=== PATIENT | male | born 1955 | race American Indian/Alaskan Native ===

== ENCOUNTER 2017-07-13 13:41 | Observation (INO) | payer OTHER ==
[~2017-07-13] VITALS: Ht 152.4 cm; Wt 63.6 kg
--- NOTE | ~2017-07-13 | OP ---
PATIENT NAME: ALFONSO EDWARD MEDICAL RECORD: [id number] :57 LOCATION:D.M2 D.2101 ADMISSION DATE:07/13/17 SURGEON: AURA LEPE MD DATE OF OPERATION: 07/14/2017 PROCEDURE: Left heart catheterization, selective coronary angiography plus 4-vessel arteriography, right femoral approach. CATHETERS: A 5-Armenian sheath, 5/4 left and right Jerome, 5/4 pig. The procedure was well tolerated. The patient was returned to navarro. Sheath removed. ExoSeal device was placed. FINDINGS: Left ventriculography not performed, heavily calcified aortic valve, unable to cross. CORONARY ANATOMY: 1. Left main: Left main is free of disease. 2. LAD: LAD is free of disease in the diagonal system. 3. Circumflex: Free of disease in the marginal system. 4. Right coronary artery has a high anterior takeoff, but is free of disease. IMPRESSION: No evidence of obstructive coronary artery disease, unable to across the aortic valve. FOUR-VESSEL ARTERIOGRAPHY: 1. Right common carotid smooth-walled vessel, free of disease. Right internal carotid smooth-walled vessel, free of disease. Right external carotid, smooth-walled vessel, free of disease. 2. Left common carotids were selectively engaged. This is a smooth-walled vessel, free of disease. Left internal carotid, smooth-walled vessel, free of disease. Left internal carotid smooth-walled vessel, free of disease. IMPRESSION: No evidence of carotid or coronary stenosis. We will check echocardiography study to see if he has significant gradient across the aortic valve, certainly it would explain his syncope and chest pain. TRANSINT:[id number] Voice Confirmation ID: [id number] DOCUMENT ID: [id number] AURA LEPE MD at 1129 CC: [id number] DICTATION DATE: 07/14/17 1220 MANAGER OF APPLICATION DEVELOPMENT: 07/14/17 1313 ADM IN [place] [id number] [place] [address]
--- NOTE | ~2017-07-13 | CN ---
PATIENT NAME:ALFONSO EDWARD MEDICAL RECORD: [id number] : 57 LOCATION:[facility] D.2101 ADMIT DATE: 07/13/17 ACCOUNT: [id number] CONSULTING PHYSICIAN: AURA LEPE MD REFERRING PHYSICIAN: ROSAURA WARNER MD DATE OF CONSULTATION: 07/14/2017 HISTORY OF PRESENT ILLNESS: A 62-year-old gentleman with no known history of coronary artery disease, recently seen in the office with TIA symptomatology, amaurosis with syncope as well as chest tightness and pressure consistent with angina. He was found to be hypertensive, was started on Edarbyclor. He was scheduled for a carotid Doppler secondary to symptomatology and carotid bruit as well as stress testing. He had rest symptomatology last night, ruled in for NSTEMI. He also had syncope, amaurosis again, we put forth for 4-vessel arteriography as well as diagnostic angiography. PAST MEDICAL HISTORY: History of new onset hypertension. MEDICATIONS: Edarbyclor 40/12.5. ALLERGIES: PENICILLIN. SOCIAL HISTORY: Works at [employer]. He is a nonsmoker. Social drinker. Easily takes care of his ADLs. REVIEW OF SYSTEMS: The patient reports easy bruising but reports no swollen glands. The patient reports no fever, no night sweats, no significant weight gain, no significant weight loss. No significant exercise tolerance. The patient reports no dry eyes, no irritation, no vision change. Patient reports no difficulty hearing and no ear pain. Patient reports no frequent nose bleeds or nose and sinus problems. Patient reports on arm pain on exertion. No shortness of breath while lying down. No history of heart murmur. Patient reports no cough, no wheezing or coughing up blood. Patient reports no abdominal pain, no vomiting. Normal appetite. No diarrhea and not vomiting blood. No nausea and no constipation. Patient reports no incontinence. No difficulty urinating. No hematuria. No increased frequency. Patient reports no muscle aches. No weakness, no arthralgias, no back pain. No swelling of the extremities. Patient reports no abnormal mole, no jaundice, no rashes. Reports no loss of consciousness. No weakness and no numbness. No seizures, dizziness, or headaches. The patient reports no depression, no sleep disturbance, feeling safe in a relationship and no alcohol abuse. Patient reports on fatigue. Reports no runny nose or sinus pressure. No itching, no hives, and no frequent sneezing. PHYSICAL EXAMINATION: GENERAL: Pleasant gentleman, appears stated age. VITAL SIGNS: Blood pressure 100/71, pulse 67 and regular. HEENT: Normocephalic, atraumatic. NECK: Left carotid bruit. HEART: Regular. LUNGS: Ryan are clear. ABDOMEN: Soft, nontender. EXTREMITIES: Pulses are 2+. No edema. NEUROLOGIC: Currently grossly intact. CONSULT REPORT [id number] ALFONSO EDWARD DIAGNOSTIC DATA: ECG shows minor nonspecific ST changes laterally. IMPRESSION: TIA, syncope, and NSTEMI. PLAN: For diagnostic coronary angiography, intervention based on above. TRANSINT:[id number] Voice Confirmation ID: [id number] DOCUMENT ID: [id number] AURA LEPE MD at 1129 CC: [id number] DICTATION DATE: 07/14/17918 INSPECTOR MECHANICAL: 07/14/17 1236 ADM IN [place] [id number] [place] [address]
--- NOTE | ~2017-07-13 | EC ---
PATIENT:ALFONSO EDWARD DATE OF SERVICE: 07/13/17 SEX: M MEDICAL RECORD: [id number] DATE OF : 57 LOCATION:D.M2 D.210 AGE OF PATIENT: 62 ADMISSION DATE: 07/13/17 REFERRING PHYSICIAN: INTERPRETING PHYSICIAN: AURA LEPE MD ECHOCARDIOGRAM REPORT ECHO CHARGES 4 ECHO COMPLETE CLINICAL DIAGNOSIS: ASSESS AORTIC VALVE/MURMUR ECHOCARDIOGRAPHIC MEASUREMENTS (adult normal given) AC root (d.<3.7cm) 2.6 cm LV Septum d (<1.2 cm> 1.4 cm Valve Excursion 0.5 cm LV Septum (systole) 1.6 cm Left Atria (s.<4.0cm> 4.3 cm LVPW d(<1.2cm) 1.6 cm RV (d.<2.3cm) 4.3 cm LVPW (sytole) 1.7 cm LV diastole(<5.6CM) 4.8 cm MV E-F(>70mm/sec) cm LV systole 3.7 cm LVOT Diameter 0.8 cm MV exc.(>10mm) cm Est.ejection fraction (50-75%) % Pericardial Effusion N DOPPLER: LVIT cm/sec A 69.0 cm/sec E 56.0 cm/sec LA cm/sec RVSP mmHg LVOT 130 cm/sec AOP1/2T m/s Asc. Ao 467 cm/sec RVOT cm/sec RA cm/sec PA cm/sec AV Gradient Peak 87.15mmHg AV Mean 57.78mmHg AV Area 0.1 cm MV Gradient Peak 2.26 mmHg MV Mean 1.13 mmHg MV Area cm COMMENTS: Superintendent: 2 RISA FREEMAN Wireless Sales Manager: 3 Dr. Lozada TAPE# PACS DATE OF SERVICE: 07/14/2017 Adequate 2-D echo, color flow imaging, spectral Doppler and M-Mode. LVH is present. LV internal dimensions are normal. Wall motion is normal. EF is greater than or equal to 55%. Aortic valve is calcified with restriction of leaflet motion. Difficult to tell if there is a bicuspid aortic valve; however, gradient is 87 mmHg, putting this in severe range. Left atrium is minimally dilated at 4.3 cm. Mitral shows no prolapse. Trace MR. Right-sided chamber is grossly normal. Trace TR. ECHOCARDIOGRAM REPORT [id number] ALFONSO EDWARD TRANSINT:[id number] Voice Confirmation ID: [id number] DOCUMENT ID: [id number] 07/18/2017 Edited to correct date of service, dmm. AURA LEPE MD at 1337 CC: [id number] DICTATION DATE: 07/15/17 1040 WINE MAKER: 07/15/17 1205 DIS IN 07/15/17 [place] [id number] [place] [id number]
--- NOTE | ~2017-07-13 | HEMODYNAMI ---
PATIENT:ALFONSO EDWARD MEDICAL RECORD: [id number] : 57 LOCATION:[facility] D.2101 ADMISSION DATE: 07/13/17 Generatedon:07/14/201712:18 Patient name: ALFONSO EDWRAD Patient #: [id number] SSN: DO B: 1955 Date of study: 07/14/2017 Page: Of Hemodynamic Procedure Report Patient Data Patient Demographics Procedure consent was obtained First Name: ALFONSO Gender: Male Last Name: WAGNER : 1955 Patient #: [id number] Age: 62 year(s) Race: Unknown Additional ID: [id number] Contact details [address]: [address] [place] [address] State: [place] City: [place] Zip code: [address] Past Medical History Allergies Allergen Reaction Date Comments Reported Other allergy 07/14/2017 N Admission Admission Data Admission Date: 07/13/2017 Admission Time: 15:45 Room #: D.2101 Height (in.): 59.84 BSA: 1.6 (m2) Height (cm.): 152 BMI: 27.27 (kg/m2) Weight (lbs.): 138.89 Weight (kg.): 63 Lab Results Lab Result Date: 07/14/2017 Lab Result Time: 0:00 Biochemistry Name Units Result Min Max BUN mg/dl 25 --(----)-* 7 18 Creatinine mg/dl 1 --(--*-)-- 0.6 1.3 CBC Name Units Result Min Max Hemoglobin g/dl 13.6 --(*---)-- 13.5 17.5 Procedure Procedure Types Cath Procedure Diagnostic Procedure LHC Coronaries only Miscellaneous Procedures Moderate Sedation up to 15 minutes Moderate Sedation up to 30 minutes Peripheral Cath Diagnostic Procedure Cath Peripheral Four Vessel Arteriogram Procedure Description Procedure Date Procedure Date: 07/14/2017 Procedure Start Time: 11:53 Procedure End Time: 12:18 Procedure Staff Name Function Seb Lozada MD Performing Physician Charity Hernandez RT Monitor Daniela Castillo RT Scrub Pedrito Beard RN Nurse Procedure Data Cath Procedure Fluoroscopy Diagnostic fluoroscopy Total fluoroscopy Time: 9.5 time: 9.5 min min Diagnostic fluoroscopy Total fluoroscopy dose: 718 dose: 718 mGy mGy Contrast Material Contrast Material Type Amount (ml) Isovue 300 121 Entry Location Entry Primary Successful Side Size Upsize Upsize Entry Closure Succes sful Closure Location (Fr) 1 (Fr) 2 (Fr) Remarks Device Remarks Femoral Right 5 Fr Exoseal artery Estimated blood loss: 10 ml Diagnostic catheters Device Type Used For End Catheter Placement MULTIPACK JL 4.0 5Fr Procedure catheter MULTIPACK 3DRC 5Fr Procedure catheter DIAGNOSTIC AR 2 MOD 5 Fr Procedure catheter ([id number]) MULTIPACK Pigtail 5 Fr Procedure catheter DIAGNOSTIC AR 2 MOD 5 Fr Procedure catheter ([id number]) Procedure Complications No complications Procedure Medications Medication Administration Route Dosage 0.9% NaCl I.V. 100 ml/hr Oxygen NC 2 l/min Heparin Flush Bag added to field 2 bags (1000units/500ml NS) Lidocaine 2% added to field 20 Versed I.V. 0.5 mg Fentanyl I.V. 100 mcg Hemodynamics Rest BSA: 1.6 (m2) HGB: 13.6 (g/dl) O2 Consumption: Estimated: 184.18 (ml/min) O2 Con sumption indexed: Estimated:115.11 (ml/min/m) Heart Rate: 64 (bpm) Snapshots Pre Cath Intra NCS Post Cath Vital Signs Time Heart Resp SPO2 etCO2 NIBP Rhythm Pain Sedation Rate (ipm) (%) (mmHg) (mmHg) Status Level (bpm) 11:13:35 67 14 98 0 103/74(84) NSR 0 (11) 10(A) , No pain 11:18:12 65 16 100 0 99/58(76) NSR 0 (11) 10(A) , No pain 11:22:46 63 13 97 0 93/66(75) NSR 0 (11) 10(A) , No pain 11:27:21 68 15 97 0 97/59(72) NSR 0 (11) 10(A) , No pain 11:31:57 67 16 94 0 89/55(80) NSR 0 (11) 10(A) , No pain 11:36:31 61 14 96 0 97/56(74) NSR 0 (11) 10(A) , No pain 11:41:08 65 14 98 0 96/55(70) NSR 0 (11) 10(A) , No pain 11:45:43 64 13 97 0 87/55(67) NSR 0 (11) 10(A) , No pain 11:50:15 60 13 98 0 87/57(70) NSR 0 (11) 10(A) , No pain 11:54:51 62 18 98 0 101/50(92) NSR 0 (11) 10(A) , No pain 11:59:28 68 16 93 0 101/54(76) NSR 0 (11) 9(A) , No pain 12:04:04 62 17 92 0 104/59(79) NSR 0 (11) 9(A) , No pain 12:08:39 65 14 96 0 111/67(79) NSR 0 (11) 9(A) , No pain 12:13:17 63 16 94 0 106/58(81) NSR 0 (11) 9(A) , No pain 12:17:54 62 16 96 0 104/66(81) NSR 0 (11) 9(A) , No pain Medications Time Medication Route Dose Verified Delivered Reason Notes Effe ctiveness by by 11:18:38 0.9% NaCl I.V. 100 Pedrito Pedrito Per ml/hr Kisha Beard physician RN RN 11:18:49 Oxygen NC 2 Pedrito Pedrito Per l/min Kisha Beard physician RN RN 11:19:05 Heparin Flush added 2 Pedrito Pedrito used for Bag to bags Kisha Beard procedure (1000units/500ml field RN RN NS) 11:19:18 Lidocaine 2% added 20ml Pedrito Pedrito for local to vial Kisha Beard anesthetic field RN RN 11:52:47 Versed I.V. 0.5 Pedrito Pedrito for mg Kisha Beard sedation RN RN 11:52:56 Fentanyl I.V. 100 Pedrito Pedrito for mcg Kisha Beard sedation RN prototyper Log Time Note 10:46:42 Procedure type changed to Cath procedure, Diagnostic procedure, LHC, Coronaries only, Miscellaneous Procedures, Moderate Sedation up to 15 minutes, Moderate Sedation up to 30 minutes, Peripheral Cath Diagnostic Procedure, Cath Peripheral, Four Vessel Arteriogram 11:00:16 Pedrito Beard RN sent for patient. Start room use. 11:12:26 Time tracking: Regular hours 11:12:32 Plan of Care:Hemodynamics will remain stable., Cardiac rhythm will remain stable., Comfort level will be maintained., Respiratory function will remain adequate., Patient/ family verbilizes understanding of procedure., Procedure tolerated without complication., Recovers from procedure without complications.. 11:12:38 Patient received from Med II to CCL 2 Alert and oriented. Tansferred to table in Supine position. 11:12:39 Warm blankets applied, and louis hugger turned on for patient comfort. 11:12:40 Correct patient and procedure confirmed by team. 11:12:42 Signed procedure consent form obtained from patient. 11:12:43 ECG and BP/O2 sat monitors applied to patient. 11:12:46 Vital chart was started 11:12:50 Baseline sample Acquired. 11:18:05 Rhythm: sinus rhythm 11:18:07 Full Disclosure recording started 11:18:16 H&P Date Dictated: 07/13/2017 Within 30 days and on chart., H&P Addendum completed by physician on day of procedure. (MUST COMPLETE FOR ALL OUTPATIENTS). 11:18:17 Pre-procedure instructions explained to patient. 11:18:19 Family in waiting room. 11:18:21 Patient NPO since Midnight. 11:18:36 Patient allergic to Other allergyPCN 11:18:38 0.9% NaCl 100 ml/hr I.V. was administered by Pedrito Beard RN; Per physician; 11:18:39 Is the patient allergic to Iodine/contrast media? No. 11:18:40 Is patient on blood thinner?No 11:18:42 Patient diabetic? No. 11:18:48 Snore? Yes 11:18:49 Oxygen 2 l/min NC was administered by Pedrito Beard RN; Per physician; 11:18:51 Sleep apnea? No 11:18:56 Dentures? No ? 11:19:01 Patient pain scale 0/10 ?. 11:19:05 Heparin Flush Bag (1000units/500ml NS) 2 bags added to field was administered by Pedrito Beard RN; used for procedure; 11:19:08 IV patent on arrival in left forearm with 0.9% NaCl at KVO. 11:19:15 Lab results completed and on chart. 11:19:18 Lidocaine 2% 20ml vial added to field was administered by Pedrito Beard RN; for local anesthetic; 11:19:19 Right groin area was prepped with chlora-prep and draped in sterile fashion 11:19:20 Alarms reviewed by R. N. 11:19:21 Sharps counted by scrub and verified by R.N. 11:19:22 Physician paged 11::58 Lab Result : Hemoglobin 13.6 g/dl 11::58 Lab Result : Creatinine 1 mg/dl 11::58 Lab Result : BUN 25 mg/dl 11:21:04 Patient Weight : 138.89 lbs 11:21:09 Patient Height : 59.84 inches 11:23:39 Physician arrived 11:23:40 --------ALL STOP TIME OUT------ 11:23:42 Zero performed for pressure channel P1 11:24:04 Zero performed for pressure channel P1 11:24:36 Final Timeout: patient, procedure, and site verified with staff and physician. All members of the team are in agreement. 11:24:40 Right groin site verified by team. 11:24:44 Physical assessment completed. ASA score P 2 - A patient with mild systemic disease as per Seb Lozada MD. 11:24:47 Sedation plan: IV Moderate Sedation Medication:Versed, Fentanyl 11:25:52 Use device set Femoral Dx 11:25:53 ACIST Syringe (50842) opened to sterile field. 11:25:54 Bag Decanter (2002S) opened to sterile field. 11:25:54 Medline Cath Pack ([id number]) opened to sterile field. 11:25:55 SHEATH 5FR Galt (PSM452) opened to sterile field. 11:25:55 DIAGNOSTIC WIRE .035 260cm J wire (855233) opened to sterile field. 11:25:56 ACIST Hand Control (43339) opened to sterile field. 11:25:57 ACIST Manifold (47367) opened to sterile field. 11:25:57 DIAGNOSTIC Multipack 5Fr catheter set ([id number]) opened to sterile field. 11:25:58 Tegaderm 4 x 4 (1626W) opened to sterile field. 11:25:59 PERCUTANEOUS ENTRY 19GA needle opened to sterile field. 11:52:47 Versed 0.5 mg I.V. was administered by Pedrito Beard RN; for sedation; 11::56 Fentanyl 100 mcg I.V. was administered by Pedrito Beard RN; for sedation; 11:53:32 Procedure started. 11:53:44 Local anesthetic to right femoral artery with Lidocaine 2% by Seb Lozada MD.INITIAL ACCESS ONLY 11:54:10 A 5 Fr sheath was inserted into the Right Femoral artery 11:54:15 Zero performed for pressure channel P1 11:55:05 A MULTIPACK JL 4.0 5Fr catheter was advanced over the wire and used for Procedure. 11:56:26 LCA angiography performed. 11:56:28 Catheter removed. 11:56:36 A MULTIPACK 3DRC 5Fr catheter was advanced over the wire and used for Procedure. 12:01:12 Right carotid angiography performed. 12:03:09 Left carotid angiography performed. 12:03:43 A DIAGNOSTIC AR 2 MOD 5 Fr catheter ([id number]) was advanced over the wire and used for Procedure. 12:04:21 RCA angiography performed. 12:04:44 A MULTIPACK Pigtail 5 Fr catheter was advanced over the wire and used for Procedure. 12:08:50 unable to cross valve with pigtail. 12:09:28 BENTSON 260cm .035 wire ([id number]) opened to sterile field. 12:09:59 A DIAGNOSTIC AR 2 MOD 5 Fr catheter ([id number]) was advanced over the wire and used for Procedure.with Bentson wire to cross valve 12::29 Timer 1 started at 12:10 PM, stopped at 12:11 PM, duration 00:01:19 sec. 12:11:57 unable to cross valve. 12:12:10 Sheath removed intact; hemostasis achieved with Exoseal to the Right Femoral artery. 12:13:03 Procedure ended.(Physican Out) 12:16:18 Fluoroscopy time 09.50 minutes. 12:16:23 Flurop Dose total: 718 12:16:23 Fluoroscopy dose: 718 mGy 12:16:29 Contrast amount:Isovue 300 121ml. 12:16:33 Sharps counted by scrub and verified by R.N. 12:16:38 Insertion/operative site no bleeding no hematoma. 12:16:40 Post Procedure Pulses reassessed and unchanged 12:16:43 Post procedure rhythm: unchanged. 12:16:47 Estimated blood loss: 10 ml 12:16:49 Post procedure instruction explained to patient.Patient verbalizes understanding. 12:17:33 Procedure and supply charges have been captured, reviewed, submitted and are correct. 12:18:10 Procedure Complication : No complications 12:18:13 Vital chart was stopped 12:18:14 See physician's report for complete and final results. 12:18:17 Report given to [facility]. 12:18:21 Patient transfered to [facility] with Bed. 12:18:27 Procedure ended. 12:18:27 Full Disclosure recording stopped 12:18:30 End room use (Document Last) Device Usage Item Name Manufacture Quantity Catalog Hospital Part Current Minimal Lot# / Number Charge Number Stock Stock Serial# Code ACIST Acist 1 87316 169416 395665 685376 20 Syringe Medical (21615) Systems Inc Bag Decanter Microtek 1 2001S 685735 32652 844058 5 (2001S) Medical Inc. Medline Cath Cardinal 1 [id number] 309099 54226 044349 5 Pack Health ([id number]) SHEATH 5FR Terumo 1 [id number] 373376 121113 745055 40 Galt (OLK981) DIAGNOSTIC St Frantz 1 668314 410841 053802 773274 30 WIRE .035 260cm J wire (071091) ACIST Hand Acist 1 50344 761661 750989 822266 5 Control Medical (39450) Systems Inc ACIST Acist 1 50926 639367 710573 940897 5 Manifold Medical (36168) Systems Inc DIAGNOSTIC Cardinal 1 GU2497 786981 07641 108544 30 Multipack Health 5Fr catheter set ([id number]) Tegaderm 4 x 3M 1 1626W 966960 591719 789772 5 4 (1626W) PERCUTANEOUS Cook Medical 1 W33534 577244 874936 5 ENTRY 19GA needle MULTIPACK JL Cardinal 1 237302 5 4.0 5Fr Health catheter MULTIPACK Cardinal 1 476429 5 3DRC 5Fr Health catheter DIAGNOSTIC Cardinal 1 [id number] 807073 664686 624075 20 AR 2 MOD 5 Health Fr catheter ([id number]) MULTIPACK Cardinal 1 274764 5 Pigtail 5 Fr Health catheter [facility] 1 V85483 321512 850437 536294 4 260cm .035 wire (W35938) Signature Audit [place] Stage Time Signature Unsigned Intra-Procedure 07/14/2017 Charity Hernandez 12:18:51 PM RT(R) Signatures Monitor : Charity Hernandez Signature : RT Date : Time : [place] [id number] [facility] [place] [address]
[2017-07-13 14:02] LABS: BASOPHILS 0.2 % (0-2); EOSINOPHILS 3.1 % (0-7); HEMATOCRIT 36.9 % (42.0-54.0); HEMOGLOBIN 13.6 g/dL (13.5-17.5); IMMATURE GRANULOCYTES 0.2 % (0-5); LYMPHOCYTES 42.7 % (15-50); MCH 32.3 pg (26.0-34.0); MCHC 36.9 g/dL (31.0-37.0); MCV 87.6 fL (80.0-100.0); MEAN PLATELET VOLUME 8.5 fL (7.4-10.4); MONOCYTES 7.7 % (2-11); NEUTROPHILS 46.1 % (40-80); RBC 4.21 10x6/uL (4.20-6.10); RDW 11.8 % (11.5-14.5); WBC 4.8 10x3/uL (4.8-10.8)
[2017-07-13 14:03] LABS: PLATELET COUNT 159 10x3/uL (130-400)
[2017-07-13 14:19] LABS: ALKALINE PHOSPHATASE 100 U/L (46-116); ALT (SGPT) 24 U/L (10-68); BILIRUBIN - TOTAL 0.99 mg/dL (0.2-1.3); CALC OSMOLALITY 279 mosm/kg (275-300); CARBON DIOXIDE 25.5 mmol/L (21.0-32.0); CHLORIDE - SERUM 101 mmol/L (98-107); GLUCOSE 142 mg/dL (74-106); POTASSIUM - SERUM 3.6 mmol/L (3.5-5.1); PROTEIN - SERUM 7.3 g/dL (6.4-8.2); SODIUM 137 mmol/L (136-145); UREA NITROGEN 25 mg/dL (7-18); eGFR NON AFRICAN AMERICAN 81 mL/min (90-120)
[2017-07-13 14:21] LABS: CHOL - HDL RATIO 2.9 ratio (2.3-4.9); CHOLESTEROL, TOTAL 176 mg/dL (0-200); CKMB 2.6 U/L (0.0-3.6); CREATINE KINASE 188 UL (21-232); HDL CHOLESTEROL 61 mg/dL (32-96); LDL CHOLESTEROL 72 mg/dL (0-100); LDL-HDL RATIO 1.2 ratio (1.5-3.5); TRIGLYCERIDE 218 mg/dL (30-200)
[2017-07-13 14:22] LABS: TROPONIN-I < 0.017 ng/mL (0.000-0.060)
[2017-07-13 17:04] VITALS: BP 130/84; BMI 27.3
[2017-07-13 19:00] VITALS: BP 92/66
[2017-07-14 04:00] VITALS: BP 100/71
[2017-07-14 07:43] VITALS: BP 85/56
[2017-07-14] MEDS ORDERED: EDARBYCLOR 40-1 EACH PO (08:17)
[2017-07-14 10:26] LABS: BASOPHILS 0.2 % (0-2); EOSINOPHILS 3.1 % (0-7); HEMOGLOBIN 14.1 g/dL (13.5-17.5); LYMPHOCYTES 36.9 % (15-50); MCH 32.1 pg (26.0-34.0); MCHC 36.2 g/dL (31.0-37.0); MCV 88.8 fL (80.0-100.0); MEAN PLATELET VOLUME 8.4 fL (7.4-10.4); MONOCYTES 9.6 % (2-11); NEUTROPHILS 50.2 % (40-80); PLATELET COUNT 143 10x3/uL (130-400); RBC 4.39 10x6/uL (4.20-6.10); RDW 11.9 % (11.5-14.5); WBC 4.2 10x3/uL (4.8-10.8)
[2017-07-14 10:37] LABS: CALC OSMOLALITY 271 mosm/kg (275-300); CALCIUM 8.9 mg/dL (8.5-10.1); CARBON DIOXIDE 26.2 mmol/L (21.0-32.0); CHLORIDE - SERUM 100 mmol/L (98-107); CREATININE - SERUM 0.8 mg/dL (0.6-1.3); GLUCOSE 114 mg/dL (74-106); POTASSIUM - SERUM 3.9 mmol/L (3.5-5.1); SODIUM 135 mmol/L (136-145); eGFR NON AFRICAN AMERICAN > 90 mL/min (90-120)
[2017-07-14 10:40] LABS: UREA NITROGEN 16 mg/dL (7-18)
[2017-07-14 12:30] VITALS: Ht 152.4 cm; Wt 63.6 kg
[2017-07-14 15:52] VITALS: BP 106/68
[2017-07-14 16:00] VITALS: BP 101/56
[2017-07-14 18:41] VITALS: BP 101/52
[2017-07-14 21:26] VITALS: BP 93/59
[2017-07-15 01:29] VITALS: BP 97/52
[2017-07-15 01:50] VITALS: BP 138/60
[2017-07-15 06:26] VITALS: BP 120/64
[2017-07-15 08:22] VITALS: BP 89/58
[2017-07-15 12:55] VITALS: BP 108/70
== END 2017-07-15 16:26 | disposition home or self-care (01) ==
LOC: D.ER 13:41 → OBSVTIME 15:45 → D.M2 15:45
PROVIDERS: Emergency Medicine; Internal Medicine Interventional Cardiology
DX: R07.9 Chest pain, unspecified (principal); R55 Syncope and collapse; E78.5 Hyperlipidemia, unspecified; I10 Essential (primary) hypertension; N17.9 Acute kidney failure, unspecified; I35.9 Nonrheumatic aortic valve disorder, unspecified

== ENCOUNTER → 2017-07-18 11:30 | Outpatient (CLI) | payer OTHER ==
[2017-07-14 12:30] VITALS: BMI 27.3
[~2017-07-18 11:30] MED LIST: ASPIRIN81 MG PO; COUMADIN2 MG PO; EDARBYCLOR 40-1 EACH PO; HYDROCODON-ACE1 EAC7 PO
[2017-07-19 17:13] LABS: HEPATITIS C ANTIBODY 0.1 (0.0-0.9)
== END | disposition home or self-care (01) ==
LOC: D.LAB 11:30 → D.US 13:00
PROVIDERS: Internal Medicine Cardiovascular Disease
DX: Z01.812 Encounter for preprocedural laboratory examination (principal); R01.1 Cardiac murmur, unspecified; I65.23 Occlusion and stenosis of bilateral carotid arteries

== ENCOUNTER 2017-07-25 05:44 | Inpatient (IN) | payer OTHER ==
[2017-07-23 12:06] LABS: BASOPHILS 0.2 % (0-2); EOSINOPHILS 1.9 % (0-7); HEMATOCRIT 39.3 % (42.0-54.0); HEMOGLOBIN 14.2 g/dL (13.5-17.5); IMMATURE GRANULOCYTES 0.2 % (0-5); LYMPHOCYTES 41.2 % (15-50); MCH 31.5 pg (26.0-34.0); MCHC 36.1 g/dL (31.0-37.0); MCV 87.1 fL (80.0-100.0); MEAN PLATELET VOLUME 8.5 fL (7.4-10.4); MONOCYTES 8.9 % (2-11); NEUTROPHILS 47.6 % (40-80); RBC 4.51 10x6/uL (4.20-6.10); RDW 11.9 % (11.5-14.5); WBC 5.4 10x3/uL (4.8-10.8)
[2017-07-23 12:12] LABS: PLATELET COUNT 186 10x3/uL (130-400)
[2017-07-23 12:14] LABS: HEMOGLOBIN A1C 5.5 % (4.8-6.0)
[2017-07-23 12:29] LABS: APTT 30.7 SECONDS (22.8-39.4); INR 0.98 (0.85-1.17); PROTIME 12.6 SECONDS (11.6-15.0)
[2017-07-23 12:36] LABS: ALBUMIN 4.1 g/dL (3.4-5.0); ALKALINE PHOSPHATASE 68 U/L (46-116); ALT (SGPT) 31 U/L (10-68); BILIRUBIN - TOTAL 1.16 mg/dL (0.2-1.3); CALC OSMOLALITY 272 mosm/kg (275-300); CALCIUM 9.5 mg/dL (8.5-10.1); CARBON DIOXIDE 29.3 mmol/L (21.0-32.0); CHLORIDE - SERUM 101 mmol/L (98-107); CHOLESTEROL, TOTAL 212 mg/dL (0-200); CREATININE - SERUM 0.8 mg/dL (0.6-1.3); GLUCOSE 104 mg/dL (74-106); PHOSPHOROUS 5.2 mg/dL (2.5-4.9); POTASSIUM - SERUM 3.8 mmol/L (3.5-5.1); PROTEIN - SERUM 7.7 g/dL (6.4-8.2); SODIUM 137 mmol/L (136-145); T4 THYROXIN - FREE 0.99 ng/dL (0.76-1.46); THYROID STIMULATING HORMONE 3.73 uIU/mL (0.36-3.74); UREA NITROGEN 9 mg/dL (7-18); eGFR NON AFRICAN AMERICAN > 90 mL/min (90-120)
[2017-07-23 13:19] LABS: APPEARANCE CLEAR (CLEAR); BILIRUBIN NEGATIVE (NEGATIVE); COLOR YELLOW (YELLOW); GLUCOSE NEGATIVE (NEGATIVE); KETONE NEGATIVE (NEGATIVE); NITRITE NEGATIVE (NEGATIVE); PROTEIN NEGATIVE (NEGATIVE); UROBILINOGEN NORMAL (NORMAL)
[2017-07-23 14:52] LABS: COLD SCREEN @ 4 DEGREES 2+ (NEGATIVE); COLD SCREEN ROOM TEMP NEGATIVE (NEGATIVE)
[~2017-07-25] VITALS: Ht 152.4 cm; Wt 52.4 kg
[2017-07-25] VITALS (45 sets, daily range): BP systolic 95–145; BP diastolic 48–108; BMI 28.3
--- NOTE | ~2017-07-25 | HP ---
PATIENT: ALFONSO EDWARD MEDICAL RECORD: [id number] ACCOUNT: [id number] LOCATION:[facility] : 57 ADMISSION DATE: 07/25/17 HISTORY AND PHYSICAL EXAMINATION ALFONSO Hoffman (62yo, M) ID# [id number]. Date/Time07/17/2017 01:59VMUCV25 1955[facility] Dept.NP_[facility] ClinicProviderCHRISTOPHER VALDIVIA MDInsuranceMed Primary: [employer] [place] ([place]) Insurance # : [id number] Policy/Group # : [id number] Referring Provider Name : LEONARDA HOLDER Employer Name : UNKNOWN Med Secondary: [employer] Insurance # : [id number] Policy/Group # : [id number] Employer Name : UNKNOWN Prescription: [employer] - This member could not be found in the payer's files. Please verify coverage and all member demographic information. Chief Complaint Aortic stenosis eval AVR Patient's Care Team Referring Provider (): LEONARDA HOLDER: [address] [address], , Carpet Weaver: AURA LEPE MD Patient's Pharmacies [place] [facility] [phone] (ERX): [address] [place] [phone], Ph , Vitals BP:138/100 sitting L arm 07/17/2017 02:09 pm 142/102 sitting R arm 07/17/2017 02:10 pmBP Cuff Size:adult 07/17/2017 02:09 pm adult 07/17/2017 02:10 pmHR:72,reg,murmur 07/17/2017 02:11 pmHt:5 ft 07/17/2017 02:11 pmWt:149 lbs 07/17/2017 02:11 pmNotes:was at work Sunday, had crushing chest pain, and woke up on the floor. Ended up in ER, had w/u w [facility]. 07/17/2017 02:12 pmBMI:29.1 07/17/2017 02:11 pmAllergies Reviewed Allergies PENICILLINSMedications Reviewed Medications Edarbyclor 40 mg-12.5 mg tablet TAKE ONE TABLET BY MOUTH ONCE DAILY06/14/17 filledsurescriptsProblems Reviewed Problems Aortic valve stenosis - Onset: 07/17/2017 Family History Discussed Family History Father- No current problems or disabilityMother- No current problems or disabilitySocial History Discussed Social History Cardiology Smoking Status: Never smoker High Cholesterol: Y High blood pressure: Y Alcohol intake: Moderate Surgical History HISTORY AND PHYSICAL [id number] ALFONSO EDWARD Reviewed Surgical History hernia repair Past Medical History Discussed Past Medical History Alcoholism: Y Blurred Vision: Y Chest Pain: Y Dizzy Spells: Y Eye Problems: Y Hyperlipidemia: Y Hypertension: Y Pain in legs when walking: Y Shortness of Breath: Y Documents for Discussion N/A Screening None recorded. HPI Valvular Heart Disease Reported by patient. Context: aortic stenosis Aortic Stenosis: last echo date 07/14/17 Associated Symptoms: chest pain severe aortic stenosis Syncope, shortness of breath ,chest pain, palpitations, and multiple episodes of dizziness progressing in frequency ROS Patient reports exercise intolerance but rep orts no fever, no night sweats, no significant weight gain, and no significant weight loss; fatigue increasing in severity. He reports jugular vein distension but reports no swollen glands. He reports chest pain on exertion, shortness of breath when walking, shortness of breath when lying down, palpitations, known heart murmur, and light-headed on standing but reports no arm pain on exertion; syncope, chest pain, shortness of breath, dizziness, dyspnea on exertion. He reports shortness of breathbut reports no cough, no wheezing, and no coughing up blood. He reports no dry eyes, no irritation, and no vision change. He reports no difficulty hearing and no ear pain. He reports no frequent nosebleeds and no nose/sinus problems. He reports no sore th r oat, no bleeding gums, no snoring, no dry mouth, no mouth ulcers, no oral abnormalities, and no teeth problems. He reports no abdominal pain, no vomiting, normal appetite, no diarrhea, not vomiting blood, no nausea, and no constipation. He reports no inco n tinence, no difficulty urinating, no hematuria, and no increased frequency. He reports no muscle aches, no muscle weakness, no arthralgias/joint pain, no back pain, and no swelling in the extremities. He reports no abnormal mole, no jaundice, and no rashe s . He reports no loss of consciousness, no weakness, no numbness, no seizures, no dizziness, and no headaches. He reports no depression, no sleep disturbances, feeling safe in relationship, and no alcohol abuse. He reports no fatigue. He reports no swollen glands and no bruising. He reports no runny nose, no sinus pressure, no itching, no hives, and no frequent sneezing. ROS as noted in the HPI Physical Exam Patient is a 62-year-old male. Constitutional: General Appearance well nourished and developed and healthy-appearing; very petite. Level of Distress NAD. Ambulation ambulating normally. HISTORY AND PHYSICAL [id number] ALFONSO EDWARD Cardiovascular: Apical Impulse not displaced or no thrill. Heart Auscultation normal s1 and s2, no rubs or gallops, and RRR and murmur (aortic stenosis). Arterial Pulses no abdominal aorta bruits, femoral bruits, or popliteal bruits and 2+ bilateral, carotid 2+ bilateral, femoral 2+ bilateral, popliteal 2+ bilateral, and dorsalis pedis 2+ bilateral. Edema no edema or varicosities. Lungs: Repiratory Effort no dyspnea. Percussion no hyperresonance or dullness or flatness. Auscultation no wheezing, rhonchi, or rales / crackles and breathing sounds normal, good air movement, and CTA except as noted. Abdomen: Bowl Sounds normal. Inspection and Palpation no tend erness, guarding, masses, or rebound tenderness and soft and non-distended. Liver non-tender and no hepatomegaly. Spleen non-tender and no splenomegaly. Hernia none palpable. Musculoskeletal System: Gait And Stance normal gait and stance. Digits and Nails normal nails and no cyanosis. Neurologic: Cranial Nerves grossly intact. Reflexes DTRs 2+ bilaterally throughout. Sensation grossly intact. Lymph Nodes: Lymph Nodes no cervical LAD, supraclavicular LAD, axillary LAD, or inguinal LAD. Eyes: Lids and Conjunctivae no discharge or pallor and non-injected. Pupils PERRLA. Cornea grossly intact. EOM EOMI. Lens clear. Sclerae non-icteric. Neck: Neck no masses, enlarged lymph nodes, or carotid bruits and supple and trachea midline. Thyroid no enlargement or nodules and non-tender. Skin: Inspection and Palpation no rash, lesions, ulcers, jaundice, or abnormal nevi. Assessment / Plan severe aortic valvular stenosis symptomatic 1. Aortic valve stenosis I35.0: Nonrheumatic aortic (valve) stenosis AORTIC VALVE STENOSIS: CARE INSTRUCTIONS Discussion Notes severe aortic valvular stenosis gradient peak greater than 87millimeters of mercury valvula mean gradient of 60 with a valve area 0.4 4vessel head study demonstrates normal carotids I have discusse d the patient's disease process with him in detail as well as the alternative methods of treatment we discussed aortic valve replacement including the expected benefits and risk which include bleeding, infection, stroke, , and the imponderables. He u nderstands all of the above and after hearing its options he would like a mechanical valve and blood thinners postoperatively. We will schedule him as soon as possible. HISTORY AND PHYSICAL [id number] ALFONSO EDWARD, CHRISTOPHER LATHAM at 1319 CC: [id number] DICTATION DATE: 07/17/16 1330 OIL PAINTER: GRACY 07/18/17 0948 PRE IN [facility] [address] [place] [address]
--- NOTE | ~2017-07-25 | HEMODYNAMI ---
PATIENT:ALFONSO EDWARD MEDICAL RECORD: [id number] : 57 LOCATION:[facility] ADMISSION DATE: 07/25/17 Generatedon:08/03/201710:06 Patient name: ALFONSO EDWARD Patient #: [id number] SSN: DO B: 1955 Date of study: 08/03/2017 Page: Of Hemodynamic Procedure Report Patient Data Patient Demographics Procedure consent was obtained First Name: ALFONSO Gender: Male Last Name: WAGNER : 1955 Patient #: [id number] Age: 62 year(s) Race: Unknown Additional ID: [id number] Contact details [address]: [address] [place] [address] State: [place] City: [place] Zip code: [address] Past Medical History Allergies Allergen Reaction Date Comments Reported Other allergy 07/14/2017 PCN Other allergy 08/03/2017 PCN Admission Admission Data Admission Date: 07/25/2017 Admission Time: 5:44 Room #: [facility] Lab Results Lab Result Date: 08/03/2017 Lab Result Time: 0:00 Biochemistry Name Units Result Min Max BUN mg/dl 7 --(*---)-- 7 18 Creatinine mg/dl 0.7 --(*---)-- 0.6 1.3 CBC Name Units Result Min Max Hemoglobin g/dl 9.2 *-(----)-- 13.5 17.5 Procedure Procedure Types Cath Procedure Diagnostic Procedure PPM/ICD PPM Dual Implant Miscellaneous Procedures Moderate Sedation up to 45 minutes Procedure Description Procedure Date Procedure Date: 08/03/2017 Procedure Start Time: 9:09 Procedure Staff Name Function Indio Fleming MD Performing Physician Rene Santos RT Monitor Mary Ryan RT Scrub Manolo Levy RN Nurse Procedure Data Cath Procedure Fluoroscopy Diagnostic fluoroscopy Total fluoroscopy Time: 7.1 time: 7.1 min min Diagnostic fluoroscopy Total fluoroscopy dose: dose: 243.99 mGy 243.99 mGy Contrast Material Contrast Material Type Amount (ml) Visipaque 270 40 Estimated blood loss: 10 ml Procedure Complications No complications Procedure Medications Medication Administration Route Dosage Oxygen NC 2 l/min Ancef (1Gm/50ml NS) I.V.P.B 1 g Ancef Irrigation Topical 1 g (1gm/500ml NS) 0.9% NaCl I.V. Lidocaine 1% added to field 20 Versed I.V. 1 mg Fentanyl I.V. 50 mcg Versed I.V. 1 mg Versed I.V. 1 mg Hemodynamics Rest HGB: 9.2 (g/dl) Heart Rate: 93 (bpm) Snapshots Pre Cath Intra NCS Post Cath Vital Signs Time Heart Resp SPO2 etCO2 NIBP (mmHg) Rhythm Pain Sedation Rate (ipm) (%) (mmHg) Status Level (bpm) 8:59:37 93 15 96 0 115/83(99) Paced 0 (11) 10(A) , No pain 9:03:45 93 13 96 0 118/84(99) Paced 0 (11) 10(A) , No pain 9:07:53 108 15 97 0 123/86(101) Paced 0 (11) 10(A) , No pain 9:11:59 104 15 98 0 122/83(94) Paced 0 (11) 10(A) , No pain 9:16:07 106 16 93 0 115/77(98) Paced 0 (11) 9(A) , No pain 9:20:19 101 26 95 0 106/73(89) Paced 0 (11) 9(A) , No pain 9:25:57 88 13 94 0 112/85(97) Paced 0 (11) 9(A) , No pain 9:30:00 103 13 98 0 125/88(105) Paced 0 (11) 9(A) , No pain 9:34:14 100 13 98 0 114/66(99) Paced 0 (11) 9(A) , No pain 9:38:22 88 13 99 0 113/72(90) Paced 0 (11) 9(A) , No pain 9:43:11 122 13 100 0 114/94(107) Paced 0 (11) 9(A) , No pain 9:47:21 104 12 100 0 115/77(93) Paced 0 (11) 9(A) , No pain 9:51:31 90 14 100 0 112/76(94) Paced 0 (11) 9(A) , No pain 9:55:36 89 17 99 0 112/81(94) Paced 0 (11) 10(A) , No pain 9:59:42 63 13 100 0 118/85(99) Paced 0 (11) 10(A) , No pain 10:03:52 90 13 100 0 121/81(97) Paced 0 (11) 10(A) , No pain Medications Time Medication Route Dose Verified Delivered Reason Notes Effective ness by by 8:51:44 Oxygen NC 2 Indio Buffie used for l/min Lonnie Levy RN procedure 8:53:12 0.9% NaCl I.V. kvo Indio Buffie Per ml/hr Lonnie Levy RN physician 8:53:55 Ancef I.V.P.B 1 g Indio Buffie Per (1Gm/50ml Lonnie Levy RN physician NS) 8:58:25 Lidocaine added 20ml Indio Indio for local 1% to vial Lonnie Fleming MD anesthetic field MD 8:59:01 Ancef Topical 1 g Indio Buffie Per Irrigation Lonnie Levy RN physician (1gm/500ml NS) 9:06:49 Versed I.V. 1 mg Indio Buffie for Lonnie Levy RN sedation 9:06:56 Fentanyl I.V. 50 Indio Buffie for mcg Lonnie Levy RN sedation 9:13:42 Versed I.V. 1 mg Indio Buffie for Lonnie Levy RN sedation 9:30:53 Versed I.V. 1 mg Indio Buffie for Lonnie Levy RN sedation Procedure Log Time Note 8:02:45 Time tracking: Regular hours 8:02:49 Plan of Care:Hemodynamics will remain stable., Cardiac rhythm will remain stable., Comfort level will be maintained., Respiratory function will remain adequate., Patient/ family verbilizes understanding of procedure., Procedure tolerated without complication., Recovers from procedure without complications.. 8:02:51 Signed procedure consent form obtained from patient. 8:03:35 Lab Result : BUN 7 mg/dl 8:03:35 Lab Result : Creatinine 0.7 mg/dl 8:03:35 Lab Result : Hemoglobin 9.2 g/dl 8:28:51 Rene ANDERSON(R) sent for patient. Start room use. 8:40:00 Patient received from CVICU to CCL 3 Alert and oriented. Tansferred to table in Supine position. 8:40:01 Patient arrived with Temp Pacemaker in place. 8:40:30 Warm blankets applied, and louis hugger turned on for patient comfort. 8:40:45 Correct patient and procedure confirmed by team. 8:51:44 Oxygen 2 l/min NC was administered by Manolo Levy RN; used for procedure; 8:53:04 Baseline sample Acquired. 8:53:12 0.9% NaCl kvo ml/hr I.V. was administered by Manolo Levy RN; Per physician; 8:53:19 Rhythm: paced 8:53:50 Full Disclosure recording started 8:53:54 Pre-procedure instructions explained to patient. 8:53:54 Pre-op teaching completed and patient verbalized understanding. 8:53:55 Ancef (1Gm/50ml NS) 1 g I.V.P.B was administered by Manolo Levy RN; Per physician; 8:53:57 Family in patients room. 8:53:58 Patient NPO since Midnight. 8:54:25 Patient allergic to Other allergyPCN 8:54:28 Is the patient allergic to Iodine/contrast media? No. 8:58:25 Lidocaine 1% 20ml vial added to field was administered by Indio Fleming MD; for local anesthetic; 8:58:35 Vital chart was started 8:59:01 Ancef Irrigation (1gm/500ml NS) 1 g Topical was administered by Manolo Levy RN; Per physician; 9:03:03 Is patient on blood thinner?No 9:03:04 Patient diabetic? No. 9:03:06 Previous problem with sedation/anesthesia? No ? 9:03:07 Snore? Yes 9:03:08 Sleep apnea? No 9:03:09 Deviated septum? No 9:03:10 Opens mouth fully? Yes 9:03:10 Sticks out tongue? Yes 9:03:12 Airway obstruction? No ? 9:03:14 Dentures? No ? 9:03:16 Patient pain scale 0/10 ?. 9:03:26 IV patent on arrival in left antecubital, port with 0.9% NaCl at KVO. 9:03:28 Lab results completed and on chart. 9:03:48 Left chest area was prepped with chlora-prep and draped in sterile fashion 9:03:57 Alarms reviewed by R. N. 9:03:57 Sharps counted by scrub and verified by R.N. 9:04:08 Use device set NORRED PPM 9:04:11 2-0 Vicryl Plus [id number] opened to sterile field. 9:04:11 2.0 Silk 685H opened to sterile field. 9:04:12 Immobilizer Large opened to sterile field. 9:04:14 Cautery Tip Veterinary Technician Assistant opened to sterile field. 9:04:14 Cautery Pushbutton Pencil opened to sterile field. 9:04:16 Stapler Skin 35W Proximate Plus (PMW35) opened to sterile field. 9:04:16 Tegaderm 4 x 4 (1626W) opened to sterile field. 9:04:17 MICROPUNCTURE 4FR Cook ([id number]) opened to sterile field. 9:04:25 Physician arrived 9:04:25 --------ALL STOP TIME OUT------ 9:04:26 Final Timeout: patient, procedure, and site verified with staff and physician. All members of the team are in agreement. 9:04:30 Left chest site verified by team. 9:04:32 Physical assessment completed. ASA score P 3 - A patient with severe systemic disease as per Indio Fleming MD. 9:04:35 Sedation plan: IV Moderate Sedation Medication:Versed, Fentanyl 9:06:49 Versed 1 mg I.V. was administered by Manolo Levy RN; for sedation; 9:06:56 Fentanyl 50 mcg I.V. was administered by Manolo Levy RN; for sedation; 9:08:38 Medtronic quality control representative damien hurd present for procedure. 9:08:51 Pre sharps counted by scrub and verified by RN: Sutures: 2; Sponges: 5; Stick needles: 4; Skin needles: 2; Blade: 1; Cautery: 1 9:08:54 Grounding pad site Right thigh. 9:08:55 Grounding pad site free from injury. 9:09:00 Lidocaine 1% was administered to left subclavicular area by Indio Fleming MD . 9:13:42 Versed 1 mg I.V. was administered by Buffie Levy RN; for sedation; 9:16:34 Incision made to left subclavicular area. 9:16:36 Generator pocket made/opened. 9:17:44 Medtronic Advisa MRI PPM Dual Generator [id number] opened to sterile field. 9:19:32 contrast delivered for obtaining access. 9:23:01 contrast delivered for obtaining access. 9:23:53 Medtronic 4074-52 PPM Lead opened to sterile field. 9:23:53 Medtronic 5076-45 PPM Lead opened to sterile field. 9:30:53 Versed 1 mg I.V. was administered by Manolo Levy RN; for sedation; 9:33:27 Access obtained with 4Fr micropunture. 9:33:27 Access obtained with 4Fr micropunture. 9:33:31 Left subclavian vein accessed with 7Fr Peel Away Sheath. 9:33:37 Ventricular lead inserted and advanced. 9:37:25 Left subclavian vein accessed with 7Fr Peel Away Sheath. 9:37:28 Atrial lead inserted and advanced. 9:37:29 Peel-a-way sheath was split and removed. 9:37:30 Peel-a-way sheath was split and removed. 9:37:32 Ventricular lead positioned. 9:37:35 Ventricular lead tested. 9:38:00 Ventricular lead attachment was completed with 2-0 silk. 9:41:03 Atrial lead positioned. 9:42:27 Atrial lead tested. 9:42:45 Atrial lead attachment was completed with 2-0 silk. 9:46:21 Temporary pacer turn off 9:48:47 PPM Dual was attached to lead(s) and inserted into pocket. 9:50:05 Generator was sutured in place with 2-0 silk. 9:50:09 Subcutaneous closure was completed with 2-0 vicryl. 9:53:42 Parameters-- Generator: Mode: DDDR. Lower Rate: 60bpm. Upper Rate: 120bpm. 9:54:07 Parameters--Atrial P/R Wave: 3.4mV. Current: 1.4mA; Threshold: 0.5V; Impedence: 513OHMS. 9:54:26 Parameters--Ventricular P/R Wave: 13.3mV. Current: 0.3mA; Threshold: 0.2V; Impedence: 843OHMS. 9:54:32 Lt Chest incision was dressed with gauze eyepad and tegaderm. 9:54:35 Procedure ended.(Physican Out) 9:55:45 Fluoroscopy time 07.10 minutes. 9:55:53 Fluoroscopy dose: 243.99 mGy 9:55:53 Flurop Dose total: 243.99 9:55:56 Contrast amount:Visipaque 270 40ml. 9:56:09 Post sharps counted by scrub and verified by RN: Sutures: 2; Sponges: 5; Stick needles: 4; Skin needles: 2; Blade: 1; Cautery: 1 9:56:14 Sharps counted by scrub and verified by R.N. 9:56:17 Insertion/operative site no bleeding no hematoma. 9:56:26 Post left subclavian vein:stable, soft, clean and dry 9:56:45 Post Procedure Pulses reassessed and unchanged 9:57:02 Post-procedure physical assessment completed. ASA score P 3 - A patient with severe systemic disease as per Indio Fleming MD. 9:59:30 Post procedure rhythm: paced 9:59:33 Estimated blood loss: 10 ml 9:59:34 Post procedure instruction explained to patient.Patient verbalizes understanding. 9:59:35 Patient needs reinforcement of post procedure teaching. 10:02:11 Procedure type changed to Cath procedure, Diagnostic procedure, PPM/ICD, PPM Dual Implant, Miscellaneous Procedures, Moderate Sedation up to 45 minutes 10:02:49 Procedure and supply charges have been captured, reviewed, submitted and are correct. 10:02:53 Procedure Complication : No complications 10:03:03 Vital chart was stopped 10:03:04 See physician's report for complete and final results. 10:03:32 Report given to CVICU. 10:03:37 Patient transfered to CVICU with Stretcher. 10:04:08 End room use (Document Last) Device Usage Item Name Manufacture Quantity Catalog Hospital Part Current Minimal Lot# / Serial# Number Charge Number Stock Stock Code 2-0 Vicryl Ethicon 1 [id number] 5 Plus [id number] 2.0 Silk 685H Ethicon 1 685H 141777 76367 [id number] 5 Immobilizer [place] [address] 79-21948 991420 777245 699981 5 Large Health Cautery Tip Microtek 1 [id number] 257142 [id number] [id number] 5 [employer] Inc[employer] Cautery Microtek 1 [id number] 676154 62082 [id number] 5 [facility] [employer] Pencil Stapler Skin Unknown 1 PMW35 [id number] [id number] 5 35W Proximate Plus (PMW35) Tegaderm 4 x 3M 1 1626W 163830 463622 [id number] 5 4 (1626W) MICROPUNCTURE [employer] 1 [id number] 799420 169118 [id number] 5 4FR [place] ([id number]) Medtronic Medtronic 1 A2DR01 [id number] [id number] 5 EXP: Advisa MRI 2018-12-03 PPM Dual SN:[id number] Generator A2DR01 Medtronic Medtronic 1 4074-52 900457 [id number] 5 EXP:2018-07-26 4074-52 PPM SS:[id number] Lead Medtronic Medtronic 1 5076-45 [id number] [id number] 5 EXP:2019-02-27 5076-45 PPM SN:[id number] Lead Signature Audit Laughlin Stage Time Signature Unsigned Intra-Procedure 08/03/2017 Rene Santos 10:06:18 AM RT(R) Signatures Monitor : Rene Santos RT Signature : Date : Time : [address] [address]
--- NOTE | ~2017-07-25 | TEE ---
PATIENT:ALFONSO EDWARD MEDICAL RECORD: [id number] LOCATION:[place] [address] AGE OF PATIENT: 62 ADMISSION DATE: 07/25/17 SEX: M REFERRING PHYSICIAN: INTERPRETING PHYSICIAN: JOSE MAI MD TRANSESOPHAGEAL ECHOCARDIOGRAM KLAUS CHARGE Y INDICATIONS: AVR PREMEDICATIONS: PATIENT'S RESPONSE PROCEDURE DOPPLER MEASUREMENTS: LVIT LA PA RA LVOT RVOT Asc. Ao AV Gradient Peak AV Mean AV Area MV Gradient Peak MV Mean MV Area INTERPRETATION: LVd: 4.7 cm LVs: 3.5 cm Doppler: 2-D: COLOR FLOW DOPPLER NORMAL SALINE STUDY: MISCELLANOUS: DIAGNOSIS: PLAN: Laborer Pipeline:3 Dr. Lozada Customer Account Coordinator: Collette MILLER COMMENTS: DATE OF SERVICE: 07/25/2017 PROCEDURE: Transesophageal echo evaluation of valvular structures during aortic valve replacement. FINDINGS: 1. Left ventricular chamber size is within normal limits. Left ventricular systolic function is mildly reduced, overall ejection fraction 40%. 2. Left atrium, right atrium, and right ventricular chamber sizes are within TRANSESOPHAGEAL ECHOCARDIOGRAM REPORT [id number] ALFONSO EDWARD normal limits. 3. Valvular structures: Aortic valve demonstrates severe calcific aortic stenosis, this is not a new finding. The patient is scheduled for aortic valve replacement. The remaining valvular structures have normal structure and motion. 4. Doppler interrogation elsewise only reveals trace mitral regurgitation. No other valvular insufficiency or stenosis. 5. No evidence of pericardial effusion or left ventricular thrombus. TRANSINT:[id number] Voice Confirmation ID: [id number] DOCUMENT ID: [id number] at 1025 CC: [id number] DICTATION DATE: 07/25/1759 CARD LACER JACQUARD: 07/26/17 0805 ADM IN [place] [id number] [place] [id number]
--- NOTE | ~2017-07-25 | OP ---
PATIENT NAME: ALFONSO EDWARD MEDICAL RECORD: [id number] :57 [facility] AD[facility]ION DATE:07/25/17 SURGEON: RALPH MIR MD DATE OF OPERATION: 07/25/2017 SURGEON: Ralph Mir MD ANESTHESIA: General endotracheal, Dr. Garcia. OPERATION PERFORMED: Aortic valve replacement utilizing a 21-mm St. Frantz [place] mechanical heart valve, [id number], serial number [id number]. PREOPERATIVE DIAGNOSIS: Critical aortic stenosis. POSTOPERATIVE DIAGNOSIS: Severe aortic stenosis secondary to calcification of a bicuspid aortic valve. INDICATION FOR OPERATION: Severe aortic stenosis. FINDINGS AT OPERATION: A bicuspid aortic valve, severely stenotic. ESTIMATED BLOOD LOSS: Cell Saver was used. DESCRIPTION OF PROCEDURE: After informed consent, adequate preoperative medication and evaluation, the patient was brought to the operating room and placed on the table in the supine position. After induction of general endotracheal anesthesia and application of appropriate monitoring devices, the chest, neck, abdomen, and both legs were prepped and draped in a sterile field, utilizing Betadine scrub, alcohol, and Betadine solution. A Betadine-impregnated drape was also used. Median sternotomy incision was made and dissection carried down the fascia. Hemostasis maintained with electrocautery. Sternum was divided. Innominate vein was identified and protected. The pericardium was opened. A pericardial well was formed by utilizing pericardial traction sutures. The patient was given a calculated dose of heparin, cannulated in the standard fashion utilizing one aortic, one two-stage cannula in the atrium and inferior vena cava. The patient was placed on cardiopulmonary bypass, cooled to 27 degrees centigrade. A crossclamp was placed just proximal to the aortic cannula and the patient was given cardioplegic solution through the aortic root. The patient was given cold cardioplegic solution throughout the procedure through the coronary ostia or through the root. A vent was placed in right superior pulmonary vein. The aorta was opened, the above findings were noted. The valve was excised and then underwent extensive debridement of the annulus, removing all the calcium from the annulus. Circumferential valve sutures were placed. The valve was then sized to a 21-mm St. Frantz mechanical valvular prosthesis. Circumferential valve sutures were placed and placed through the sewing ring of the valve. The valve was lowered into position and secured. The valve was tested and there was no leak and function was appropriate. The aorta was closed in 2 layers utilizing running 4-0 Prolene suture. All maneuvers to remove trapped air were performed. The patient was given warm cardioplegic reperfusion and controlled reperfusion. The patient rewarmed to 37 degrees centigrade. Two atrial and 2 ventricular pacing wires were placed on the heart and brought out through the epigastric area. The patient was weaned cardiopulmonary bypass. After being stable off bypass, he was given calculated dose of protamine to reverse the heparin. Hemostasis was achieved. A #40 right angle and #36 chest tubes were brought in OPERATIVE REPORT [id number] ALFONSO EDWARD through the epigastric area and placed in the mediastinum. The chest was again irrigated. Instrument count and sponge count were correct times 2. Chest was closed in layers utilizing #7 wire on the sternum, #2 Vicryl on the linea alba and pectoralis fascia. Subcutaneous tissue was approximated with 3-0 Vicryl and skin approximated with 3-0 subcuticular Vicryl. Sterile dressings were applied. The patient tolerated the procedure well and was transferred to the CV ICU in satisfactory condition. TRANSINT:[id number] Voice Confirmation ID: [id number] DOCUMENT ID: [id number] RALPH MIR MD at 1117 CC: [id number] DICTATION DATE: 07/25/17 1227 WEBBING SUPERVISOR: 07/25/17 1451 ADM IN [place] [id number] [place] [address]
[~2017-07-25 05:44] MED LIST changes: -ASPIRIN81 MG PO; -COUMADIN2 MG PO; -HYDROCODON-ACE1 EAC7 PO
[2017-07-25 08:33] LABS: PLT FUNCT.(P2Y12) PLAVIX 283 PRU (194-418)
[2017-07-25 12:14] LABS: HEMATOCRIT 27.3 % (42.0-54.0); HEMOGLOBIN 9.6 g/dL (13.5-17.5); MCH 31.7 pg (26.0-34.0); MCHC 35.2 g/dL (31.0-37.0); MCV 90.1 fL (80.0-100.0); MEAN PLATELET VOLUME 8.5 fL (7.4-10.4); RBC 3.03 10x6/uL (4.20-6.10); RDW 12.4 % (11.5-14.5); WBC 7.5 10x3/uL (4.8-10.8)
[2017-07-25 12:18] LABS: CALC OSMOLALITY 287 mosm/kg (275-300); CALCIUM 7.4 mg/dL (8.5-10.1); CARBON DIOXIDE 23.6 mmol/L (21.0-32.0); CHLORIDE - SERUM 109 mmol/L (98-107); CREATININE - SERUM 0.6 mg/dL (0.6-1.3); GLUCOSE 184 mg/dL (74-106); POTASSIUM - SERUM 3.8 mmol/L (3.5-5.1); SODIUM 143 mmol/L (136-145); UREA NITROGEN 8 mg/dL (7-18); eGFR NON AFRICAN AMERICAN > 90 mL/min (90-120)
[2017-07-25 12:19] LABS: APTT 42.6 SECONDS (22.8-39.4); INR 1.5 (0.85-1.17); PROTIME 17.6 SECONDS (11.6-15.0)
[2017-07-25 12:21] LABS: PLATELET COUNT 97 10x3/uL (130-400)
[2017-07-25 13:37] LABS: PLATELET ESTIMATE DECREASED
[2017-07-26] VITALS (95 sets, daily range): BP systolic 103–127; BP diastolic 56–69; Ht 152.4 cm; Wt 52.4 kg
[2017-07-26 06:22] LABS: HEMATOCRIT 29.2 % (42.0-54.0); MCH 31.5 pg (26.0-34.0); MCHC 34.2 g/dL (31.0-37.0); MEAN PLATELET VOLUME 8.6 fL (7.4-10.4); RBC 3.17 10x6/uL (4.20-6.10); RDW 12.7 % (11.5-14.5)
[2017-07-26 06:28] LABS: ALBUMIN 4.1 g/dL (3.4-5.0); ALKALINE PHOSPHATASE 31 U/L (46-116); ALT (SGPT) 25 U/L (10-68); BILIRUBIN - TOTAL 2.11 mg/dL (0.2-1.3); CALC OSMOLALITY 285 mosm/kg (275-300); CALCIUM 8.9 mg/dL (8.5-10.1); CARBON DIOXIDE 28.9 mmol/L (21.0-32.0); CHLORIDE - SERUM 106 mmol/L (98-107); GLUCOSE 174 mg/dL (74-106); MCV 92.1 fL (80.0-100.0); POTASSIUM - SERUM 4.3 mmol/L (3.5-5.1); PROTEIN - SERUM 6.1 g/dL (6.4-8.2); SODIUM 142 mmol/L (136-145); UREA NITROGEN 10 mg/dL (7-18); WBC 9.8 10x3/uL (4.8-10.8)
[2017-07-26 06:29] LABS: CREATININE - SERUM 0.8 mg/dL (0.6-1.3); eGFR NON AFRICAN AMERICAN > 90 mL/min (90-120)
[2017-07-27] VITALS (45 sets, daily range): BP systolic 103–135; BP diastolic 55–96
[2017-07-27 06:42] LABS: HEMATOCRIT 23.6 % (42.0-54.0); HEMOGLOBIN 8.3 g/dL (13.5-17.5); MCH 32.4 pg (26.0-34.0); MCHC 35.2 g/dL (31.0-37.0); MCV 92.2 fL (80.0-100.0); MEAN PLATELET VOLUME 8.9 fL (7.4-10.4); RBC 2.56 10x6/uL (4.20-6.10); RDW 12.6 % (11.5-14.5); WBC 7.5 10x3/uL (4.8-10.8)
[2017-07-27 07:00] LABS: ALBUMIN 3.3 g/dL (3.4-5.0); ALKALINE PHOSPHATASE 29 U/L (46-116); ALT (SGPT) 22 U/L (10-68); BILIRUBIN - TOTAL 1.41 mg/dL (0.2-1.3); CARBON DIOXIDE 29.7 mmol/L (21.0-32.0); CHLORIDE - SERUM 100 mmol/L (98-107); CREATININE - SERUM 0.8 mg/dL (0.6-1.3); GLUCOSE 136 mg/dL (74-106); PROTEIN - SERUM 5.7 g/dL (6.4-8.2); SODIUM 134 mmol/L (136-145); eGFR NON AFRICAN AMERICAN > 90 mL/min (90-120)
[2017-07-27 07:03] LABS: CALC OSMOLALITY 269 mosm/kg (275-300); UREA NITROGEN 13 mg/dL (7-18)
[2017-07-28] VITALS (24 sets, daily range): BP systolic 100–125; BP diastolic 70–91
[2017-07-28 06:52] LABS: HEMATOCRIT 24.4 % (42.0-54.0); HEMOGLOBIN 8.2 g/dL (13.5-17.5); MCH 30.7 pg (26.0-34.0); MCHC 33.6 g/dL (31.0-37.0); MCV 91.4 fL (80.0-100.0); MEAN PLATELET VOLUME 9.3 fL (7.4-10.4); RBC 2.67 10x6/uL (4.20-6.10); RDW 12.8 % (11.5-14.5); WBC 5.9 10x3/uL (4.8-10.8)
[2017-07-28 06:56] LABS: INR 1.15 (0.85-1.17); PROTIME 14.3 SECONDS (11.6-15.0)
[2017-07-28 07:10] LABS: ALBUMIN 3.2 g/dL (3.4-5.0); ALKALINE PHOSPHATASE 39 U/L (46-116); BILIRUBIN - TOTAL 1.22 mg/dL (0.2-1.3); CALC OSMOLALITY 269 mosm/kg (275-300); CALCIUM 8.2 mg/dL (8.5-10.1); CARBON DIOXIDE 27.5 mmol/L (21.0-32.0); CHLORIDE - SERUM 100 mmol/L (98-107); CREATININE - SERUM 0.7 mg/dL (0.6-1.3); GLUCOSE 122 mg/dL (74-106); POTASSIUM - SERUM 3.7 mmol/L (3.5-5.1); PROTEIN - SERUM 5.9 g/dL (6.4-8.2); SODIUM 135 mmol/L (136-145); UREA NITROGEN 10 mg/dL (7-18); eGFR NON AFRICAN AMERICAN > 90 mL/min (90-120)
[2017-07-28 07:14] LABS: ALT (SGPT) 28 U/L (10-68)
[2017-07-29] VITALS (23 sets, daily range): BP systolic 103–140; BP diastolic 55–96
[2017-07-29 06:07] LABS: HEMATOCRIT 24.4 % (42.0-54.0); HEMOGLOBIN 8.2 g/dL (13.5-17.5); MCH 30.6 pg (26.0-34.0); MCHC 33.6 g/dL (31.0-37.0); MEAN PLATELET VOLUME 9.4 fL (7.4-10.4); RBC 2.68 10x6/uL (4.20-6.10); RDW 12.8 % (11.5-14.5); WBC 5.5 10x3/uL (4.8-10.8)
[2017-07-29 06:13] LABS: INR 2.81 (0.85-1.17); PROTIME 28.9 SECONDS (11.6-15.0)
[2017-07-29 06:24] LABS: ALBUMIN 3.1 g/dL (3.4-5.0); ALKALINE PHOSPHATASE 48 U/L (46-116); ALT (SGPT) 34 U/L (10-68); CALC OSMOLALITY 268 mosm/kg (275-300); CALCIUM 8.5 mg/dL (8.5-10.1); CARBON DIOXIDE 26.3 mmol/L (21.0-32.0); CHLORIDE - SERUM 100 mmol/L (98-107); CREATININE - SERUM 0.7 mg/dL (0.6-1.3); GLUCOSE 113 mg/dL (74-106); POTASSIUM - SERUM 3.7 mmol/L (3.5-5.1); PROTEIN - SERUM 6.1 g/dL (6.4-8.2); SODIUM 135 mmol/L (136-145); eGFR NON AFRICAN AMERICAN > 90 mL/min (90-120)
[2017-07-29 06:26] LABS: UREA NITROGEN 7 mg/dL (7-18)
[2017-07-29 13:47] LABS: INR 1.31 (0.85-1.17); PROTIME 15.6 SECONDS (11.6-15.0)
[2017-07-30] VITALS (24 sets, daily range): BP systolic 100–143; BP diastolic 49–98
[2017-07-30 06:16] LABS: HEMATOCRIT 25.9 % (42.0-54.0); HEMOGLOBIN 8.8 g/dL (13.5-17.5); MCH 31.1 pg (26.0-34.0); MCV 91.5 fL (80.0-100.0); MEAN PLATELET VOLUME 8.6 fL (7.4-10.4); RBC 2.83 10x6/uL (4.20-6.10); WBC 5.5 10x3/uL (4.8-10.8)
[2017-07-30 06:48] LABS: ALBUMIN 3.3 g/dL (3.4-5.0); ALKALINE PHOSPHATASE 51 U/L (46-116); ALT (SGPT) 37 U/L (10-68); CALC OSMOLALITY 276 mosm/kg (275-300); CALCIUM 8.6 mg/dL (8.5-10.1); CHLORIDE - SERUM 102 mmol/L (98-107); CREATININE - SERUM 0.7 mg/dL (0.6-1.3); GLUCOSE 109 mg/dL (74-106); POTASSIUM - SERUM 3.6 mmol/L (3.5-5.1); PROTEIN - SERUM 6.4 g/dL (6.4-8.2); SODIUM 139 mmol/L (136-145); UREA NITROGEN 6 mg/dL (7-18); eGFR NON AFRICAN AMERICAN > 90 mL/min (90-120)
[2017-07-30 07:40] LABS: INR 1.76 (0.85-1.17); PROTIME 19.7 SECONDS (11.6-15.0)
[2017-07-30 13:02] LABS: MAGNESIUM - SERUM 2.1 mg/dL (1.8-2.4); THYROID STIMULATING HORMONE 2.46 uIU/mL (0.36-3.74)
[2017-07-31] VITALS (24 sets, daily range): BP systolic 105–153; BP diastolic 65–94
[2017-07-31 06:29] LABS: HEMATOCRIT 25.7 % (42.0-54.0); HEMOGLOBIN 8.4 g/dL (13.5-17.5); MCH 30.4 pg (26.0-34.0); MCHC 32.7 g/dL (31.0-37.0); MCV 93.1 fL (80.0-100.0); MEAN PLATELET VOLUME 8.5 fL (7.4-10.4); RBC 2.76 10x6/uL (4.20-6.10); RDW 13.5 % (11.5-14.5); WBC 6.4 10x3/uL (4.8-10.8)
[2017-07-31 06:57] LABS: ALKALINE PHOSPHATASE 52 U/L (46-116); ALT (SGPT) 44 U/L (10-68); CALC OSMOLALITY 277 mosm/kg (275-300); CALCIUM 8.6 mg/dL (8.5-10.1); CARBON DIOXIDE 28.1 mmol/L (21.0-32.0); CHLORIDE - SERUM 103 mmol/L (98-107); CREATININE - SERUM 0.7 mg/dL (0.6-1.3); GLUCOSE 113 mg/dL (74-106); INR 2.62 (0.85-1.17); POTASSIUM - SERUM 3.2 mmol/L (3.5-5.1); PROTIME 27.3 SECONDS (11.6-15.0); SODIUM 140 mmol/L (136-145); UREA NITROGEN 7 mg/dL (7-18); eGFR NON AFRICAN AMERICAN > 90 mL/min (90-120)
[2017-08-01] VITALS (19 sets, daily range): BP systolic 105–132; BP diastolic 60–90
[2017-08-01 06:58] LABS: HEMATOCRIT 27.6 % (42.0-54.0); HEMOGLOBIN 8.9 g/dL (13.5-17.5); MCH 30.1 pg (26.0-34.0); MCHC 32.2 g/dL (31.0-37.0); MCV 93.2 fL (80.0-100.0); MEAN PLATELET VOLUME 8.3 fL (7.4-10.4); RBC 2.96 10x6/uL (4.20-6.10); RDW 13.6 % (11.5-14.5); WBC 6.9 10x3/uL (4.8-10.8)
[2017-08-01 07:20] LABS: ALBUMIN 3.2 g/dL (3.4-5.0); ALKALINE PHOSPHATASE 56 U/L (46-116); ALT (SGPT) 44 U/L (10-68); CALC OSMOLALITY 271 mosm/kg (275-300); CALCIUM 8.4 mg/dL (8.5-10.1); CARBON DIOXIDE 29.8 mmol/L (21.0-32.0); CHLORIDE - SERUM 100 mmol/L (98-107); CREATININE - SERUM 0.7 mg/dL (0.6-1.3); GLUCOSE 119 mg/dL (74-106); POTASSIUM - SERUM 3.9 mmol/L (3.5-5.1); PROTEIN - SERUM 6.4 g/dL (6.4-8.2); SODIUM 137 mmol/L (136-145); eGFR NON AFRICAN AMERICAN > 90 mL/min (90-120)
[2017-08-01 07:22] LABS: UREA NITROGEN 5 mg/dL (7-18)
[2017-08-01 07:23] LABS: INR 2.37 (0.85-1.17); PROTIME 25.3 SECONDS (11.6-15.0)
[2017-08-02] VITALS (18 sets, daily range): BP systolic 104–137; BP diastolic 68–93
[2017-08-02 06:30] LABS: HEMATOCRIT 27.7 % (42.0-54.0); HEMOGLOBIN 9.1 g/dL (13.5-17.5); MCH 30.5 pg (26.0-34.0); MCHC 32.9 g/dL (31.0-37.0); MEAN PLATELET VOLUME 8.2 fL (7.4-10.4); RBC 2.98 10x6/uL (4.20-6.10); RDW 13.5 % (11.5-14.5); WBC 7.3 10x3/uL (4.8-10.8)
[2017-08-02 06:40] LABS: INR 1.75 (0.85-1.17); PROTIME 19.9 SECONDS (11.6-15.0)
[2017-08-02 06:43] LABS: ALBUMIN 3.1 g/dL (3.4-5.0); ALKALINE PHOSPHATASE 60 U/L (46-116); ALT (SGPT) 48 U/L (10-68); BILIRUBIN - TOTAL 0.68 mg/dL (0.2-1.3); CALCIUM 8.4 mg/dL (8.5-10.1); CARBON DIOXIDE 27.3 mmol/L (21.0-32.0); CHLORIDE - SERUM 100 mmol/L (98-107); CREATININE - SERUM 0.8 mg/dL (0.6-1.3); PROTEIN - SERUM 6.5 g/dL (6.4-8.2); SODIUM 136 mmol/L (136-145); UREA NITROGEN 5 mg/dL (7-18); eGFR NON AFRICAN AMERICAN > 90 mL/min (90-120)
[2017-08-02 06:50] LABS: CALC OSMOLALITY 273 mosm/kg (275-300); GLUCOSE 180 mg/dL (74-106); POTASSIUM - SERUM 3.3 mmol/L (3.5-5.1)
[2017-08-02 17:06] LABS: HEMATOCRIT 29.2 % (42.0-54.0); HEMOGLOBIN 9.5 g/dL (13.5-17.5); MCH 30.4 pg (26.0-34.0); MCHC 32.5 g/dL (31.0-37.0); MCV 93.6 fL (80.0-100.0); MEAN PLATELET VOLUME 8.2 fL (7.4-10.4); RBC 3.12 10x6/uL (4.20-6.10); RDW 13.6 % (11.5-14.5); WBC 8.6 10x3/uL (4.8-10.8)
[2017-08-02 17:22] LABS: APTT 42.7 SECONDS (22.8-39.4)
[2017-08-02 17:24] LABS: CALC OSMOLALITY 272 mosm/kg (275-300); CALCIUM 8.9 mg/dL (8.5-10.1); CARBON DIOXIDE 26.9 mmol/L (21.0-32.0); CHLORIDE - SERUM 98 mmol/L (98-107); GLUCOSE 154 mg/dL (74-106); POTASSIUM - SERUM 4.2 mmol/L (3.5-5.1); SODIUM 136 mmol/L (136-145); UREA NITROGEN 6 mg/dL (7-18)
[2017-08-02 17:34] LABS: CREATININE - SERUM 0.9 mg/dL (0.6-1.3); eGFR NON AFRICAN AMERICAN > 90 mL/min (90-120)
[2017-08-02 17:37] LABS: INR 1.59 (0.85-1.17); PROTIME 18.4 SECONDS (11.6-15.0)
[2017-08-03] VITALS (22 sets, daily range): BP systolic 104–143; BP diastolic 61–87
[2017-08-03 06:38] LABS: HEMATOCRIT 28.2 % (42.0-54.0); HEMOGLOBIN 9.2 g/dL (13.5-17.5); MCH 30.2 pg (26.0-34.0); MCHC 32.6 g/dL (31.0-37.0); MCV 92.5 fL (80.0-100.0); RBC 3.05 10x6/uL (4.20-6.10); RDW 13.3 % (11.5-14.5); WBC 7.6 10x3/uL (4.8-10.8)
[2017-08-03 06:50] LABS: INR 1.58 (0.85-1.17); PROTIME 18.4 SECONDS (11.6-15.0)
[2017-08-03 07:09] LABS: ALKALINE PHOSPHATASE 63 U/L (46-116); ALT (SGPT) 59 U/L (10-68); BILIRUBIN - TOTAL 0.52 mg/dL (0.2-1.3); CALCIUM 8.7 mg/dL (8.5-10.1); CARBON DIOXIDE 28.6 mmol/L (21.0-32.0); CHLORIDE - SERUM 103 mmol/L (98-107); CREATININE - SERUM 0.7 mg/dL (0.6-1.3); POTASSIUM - SERUM 3.7 mmol/L (3.5-5.1); PROTEIN - SERUM 6.6 g/dL (6.4-8.2); SODIUM 140 mmol/L (136-145); eGFR NON AFRICAN AMERICAN > 90 mL/min (90-120)
[2017-08-03 07:10] LABS: CALC OSMOLALITY 277 mosm/kg (275-300); GLUCOSE 116 mg/dL (74-106); UREA NITROGEN 7 mg/dL (7-18)
[2017-08-04] VITALS (21 sets, daily range): BP systolic 103–129; BP diastolic 62–83
[2017-08-04 06:47] LABS: HEMATOCRIT 28.2 % (42.0-54.0); HEMOGLOBIN 9.3 g/dL (13.5-17.5); MCH 29.9 pg (26.0-34.0); MCV 90.7 fL (80.0-100.0); RBC 3.11 10x6/uL (4.20-6.10); RDW 13.3 % (11.5-14.5); WBC 7.8 10x3/uL (4.8-10.8)
[2017-08-04 07:03] LABS: ALBUMIN 2.9 g/dL (3.4-5.0); ALKALINE PHOSPHATASE 69 U/L (46-116); ALT (SGPT) 49 U/L (10-68); BILIRUBIN - TOTAL 0.54 mg/dL (0.2-1.3); CALC OSMOLALITY 272 mosm/kg (275-300); CALCIUM 8.6 mg/dL (8.5-10.1); CARBON DIOXIDE 29.1 mmol/L (21.0-32.0); CHLORIDE - SERUM 100 mmol/L (98-107); CREATININE - SERUM 0.6 mg/dL (0.6-1.3); GLUCOSE 110 mg/dL (74-106); PROTEIN - SERUM 6.6 g/dL (6.4-8.2); SODIUM 137 mmol/L (136-145); UREA NITROGEN 6 mg/dL (7-18); eGFR NON AFRICAN AMERICAN > 90 mL/min (90-120)
[2017-08-04 07:16] LABS: INR 1.85 (0.85-1.17); PROTIME 20.8 SECONDS (11.6-15.0)
[2017-08-05] VITALS (24 sets, daily range): BP systolic 91–140; BP diastolic 64–97
[2017-08-05 07:32] LABS: INR 2.34 (0.85-1.17)
[2017-08-06] VITALS (12 sets, daily range): BP systolic 96–121; BP diastolic 56–82
[2017-08-06 07:13] LABS: INR 2.37 (0.85-1.17); PROTIME 25.3 SECONDS (11.6-15.0)
[2017-08-06] MEDS ORDERED: COUMADIN2 MG PO (10:38)
[2017-08-06] MEDS ORDERED: ASPIRIN81 MG PO (10:41)
[2017-08-06] MEDS ORDERED: HYDROCODON-ACE1 EAC7 PO (10:44)
== END 2017-08-06 13:50 | disposition home or self-care (01) | DRG 220 ==
LOC: D.CVICU 05:44 → D.SDCHOLD 05:44 → D.CVICU 11:24
PROVIDERS: Family Medicine; Internal Medicine Cardiovascular Disease
PROC: B245ZZ4 Ultrasonography of Left Heart, Transesophageal (ICD-10-PCS; 2017-07-25)
PROC: 02RF0JZ Replacement of Aortic Valve with Synthetic Substitute, Open Approach (ICD-10-PCS; principal; 2017-07-25 07:30)
PROC: 0JH606Z Insertion of Pacemaker, Dual Chamber into Chest Subcutaneous Tissue and Fascia, Open Approach (ICD-10-PCS; 2017-08-03)
PROC: 02H63JZ Insertion of Pacemaker Lead into Right Atrium, Percutaneous Approach (ICD-10-PCS; 2017-08-03)
PROC: 02HK3JZ Insertion of Pacemaker Lead into Right Ventricle, Percutaneous Approach (ICD-10-PCS; 2017-08-03)
DX: I35.0 Nonrheumatic aortic (valve) stenosis (principal); I44.2 Atrioventricular block, complete; E78.00 Pure hypercholesterolemia, unspecified; F10.20 Alcohol dependence, uncomplicated; R56.9 Unspecified convulsions; R47.1 Dysarthria and anarthria; R29.810 Facial weakness; J45.998 Other asthma; R05 Cough

== ENCOUNTER → 2017-08-10 09:19 | Outpatient (CLI) | payer OTHER ==
[2017-07-26 10:15] VITALS: BMI 26.2
[~2017-08-10 09:19] MED LIST changes: +ASPIRIN81 MG PO; +COUMADIN2 MG PO; +HYDROCODON-ACE1 EAC7 PO
[2017-08-10 10:21] LABS: INR 1.69 (0.85-1.17); PROTIME 19.4 SECONDS (11.6-15.0)
== END | disposition home or self-care (01) ==
LOC: D.LAB 09:19
PROVIDERS: Internal Medicine Cardiovascular Disease
DX: Z95.2 Presence of prosthetic heart valve (principal); Z51.81 Encounter for therapeutic drug level monitoring; Z79.01 Long term (current) use of anticoagulants

== ENCOUNTER → 2017-08-17 08:40 | Outpatient (CLI) | payer OTHER ==
[2017-07-26 10:15] VITALS: BMI 26.2
[2017-08-17 09:20] LABS: INR 5.07 (0.85-1.17)
== END | disposition home or self-care (01) ==
LOC: D.LAB 08:40
PROVIDERS: Internal Medicine Cardiovascular Disease
DX: Z51.81 Encounter for therapeutic drug level monitoring (principal); Z79.01 Long term (current) use of anticoagulants; Z95.2 Presence of prosthetic heart valve

== ENCOUNTER 2017-08-22 06:42 | Outpatient (CLI) | payer OTHER ==
[2017-07-26 10:15] VITALS: BMI 26.2
--- NOTE | ~2017-08-22 | HEMODYNAMI ---
PATIENT:ALFONSO EDWARD MEDICAL RECORD: [id number] : 57 LOCATION:D[facility]YCE ADMISSION DATE: 08/22/17 Generatedon:08/22/20179:06 Patient name: ALFONSO EDWARD Patient #: [id number] SSN: DO B: 1955 Date of study: 08/22/2017 Page: Of Hemodynamic Procedure Report Patient Data Patient Demographics Procedure consent was obtained First Name: ALFONSO Gender: Male Last Name: WAGNER : 1955 Patient #: [id number] Age: 62 year(s) Race: Unknown Additional ID: [id number] Contact details [address]: [address] [place] [address] State: [place] City: [place] Zip code: [address] Past Medical History Allergies Allergen Reaction Date Comments Reported Other allergy 07/14/2017 PCN Other allergy 08/03/2017 PCN Other allergy 08/22/2017 PCN Admission Admission Data Admission Date: 08/22/2017 Admission Time: 6:42 Height (in.): 62 BSA: 1.67 (m2) Height (cm.): 157.48 BMI: 26.7 (kg/m2) Weight (lbs.): 146 Weight (kg.): 66.22 Procedure Procedure Types Cath Procedure Diagnostic Procedure Cardioversion Procedure Description Procedure Date Procedure Date: 08/22/2017 Procedure Start Time: 8:35 Procedure Staff Name Function Indio Fleming MD Performing Physician Manolo Levy RN Nurse Rene Santos RT Monitor Mary Ryan RT Monitor Procedure Data Procedure Complications No complications Procedure Medications Medication Administration Route Dosage Oxygen NC 4 l/min Versed I.V. 2 mg Fentanyl I.V. 25 mcg Versed I.V. 2 mg Lopressor I.V. 5 mg Hemodynamics Rest BSA: 1.67 (m2) O2 Consumption: Estimated: 203.38 (ml/min) O2 Consumption indexed : Estimated:121.78 (ml/min/m) Heart Rate: 82 (bpm) Snapshots Pre Cath Intra NCS Post Cath Vital Signs Time Heart Resp SPO2 etCO2 NIBP (mmHg) Rhythm Pain Sedation Rate (ipm) (%) (mmHg) Status Level (bpm) 8:46:40 145 19 100 29.5 133/103(117) A-Flutter 0 (11) 10(A) , No pain 8:50:48 145 21 100 28.7 140/111(122) A-Flutter 0 (11) 10(A) , No pain 8:54:50 142 24 100 29.4 115/92(106) A-Flutter 0 (11) 9(A) , No pain 8:58:47 98 23 100 27.9 119/90(111) NSR 0 (11) 9(A) , No pain 9:02:49 90 19 100 16.6 108/96(98) NSR 0 (11) 10(A) , No pain Medications Time Medication Route Dose Verified Delivered Reason Notes Effectivene ss by by 8:50:35 Oxygen NC 4 Indio Indio used for l/min Lonnie Fleming MD procedure 8:50:45 Versed I.V. 2 mg Indio Indio for Lonnie Fleming MD sedation 8:50:51 Fentanyl I.V. 25 Indio Indio for mcg Lonnie Fleming MD sedation 8:54:35 Versed I.V. 2 mg Indio Indio for Lonnie Fleming MD sedation 8:59:44 Lopressor I.V. 5 mg Indio Buffie Per Lonnie Levy RN physician MD Procedure Log Time Note 8:35:39 Patient Height : 62 inches 8:35:47 Patient Weight : 146 lbs 8:36:18 Diagnostic Cath status Elective 8:36:20 Elizabeth Araujo RN sent for patient. Start room use. 8:36:22 Time tracking: Regular hours 8:36:27 Plan of Care:Hemodynamics will remain stable., Cardiac rhythm will remain stable., Comfort level will be maintained., Respiratory function will remain adequate., Patient/ family verbilizes understanding of procedure., Procedure tolerated without complication., Recovers from procedure without complications.. 8:40:34 Patient arrived from Pre/Post Procedure Room to [facility] 3. Patient remains on bed/stretcher for procedure. 8:40:35 Warm blankets applied, and louis hugger turned on for patient comfort. 8:40:36 Correct patient and procedure confirmed by team. 8:40:42 Quick Combo opened to sterile field. 8:40:46 Signed procedure consent form obtained from patient. 8:40:47 ECG and BP/O2 sat monitors applied to patient. 8:41:31 H&P Date Dictated: 08/21/2017 Within 30 days and on chart., H&P Addendum completed by physician on day of procedure. (MUST COMPLETE FOR ALL OUTPATIENTS). 8:41:32 Pre-procedure instructions explained to patient. 8:41:33 Pre-op teaching completed and patient verbalized understanding. 8:41:34 Family in waiting room. 8:41:36 Patient NPO since Midnight. 8:41:46 Patient allergic to Other allergyPCN 8:41:49 Is the patient allergic to Iodine/contrast media? No. 8:41:51 Is patient on blood thinner?Yes 8:42:06 ACC The patient was administered the following blood thiners within the last 24 hours: Coumadin 8:45:26 Patient diabetic? No. 8:45:30 Previous problem with sedation/anesthesia? No ? 8:45:31 Snore? Yes 8:45:32 Sleep apnea? No 8:45:33 Deviated septum? No 8:45:33 Opens mouth fully? Yes 8:45:34 Sticks out tongue? Yes 8:45:35 Airway obstruction? No ? 8:45:39 Dentures? No ? 8:45:42 Vital chart was started 8:45:50 Baseline sample Acquired. 8:45:52 Baseline sample Acquired. 8:45:53 Baseline sample Acquired. 8:45:54 Baseline sample Acquired. 8:45:55 Baseline sample Acquired. 8:46:03 Rhythm: atrial flutter 8:46:13 Patient pain scale 0/10 ?. 8:46:26 IV patent on arrival in left forearm with 0.9% NaCl at [facility]. 8:46:29 Lab results completed and on chart. 8:46:31 Alarms reviewed by Adolfo Woods 8:46:34 Physician arrived 8:46:35 --------ALL STOP TIME OUT------ 8:46:35 Final Timeout: patient, procedure, and site verified with staff and physician. All members of the team are in agreement. 8:46:41 Physical assessment completed. ASA score P 2 - A patient with mild systemic disease as per Indio Fleming MD. 8:46:44 Sedation plan: IV Moderate Sedation Medication:Versed, Fentanyl 8:47:27 Baseline sample Acquired. 8:50:35 Oxygen 4 l/min NC was administered by Indio Fleming MD; used for procedure; 8:50:45 Versed 2 mg I.V. was administered by Indio Fleming MD; for sedation; 8:50:51 Fentanyl 25 mcg I.V. was administered by Indio Fleming MD; for sedation; 8:54:06 [employer] enrollment representative damien hurd present for procedure. 8:54:13 Quick combo pads placed on patients chest and back. 8:54:35 Versed 2 mg I.V. was administered by Indio Fleming MD; for sedation; 8:56:08 Defibrillator synced and charged to 200 Joules. 8:56:53 Patient cardioverted to paced. 8:59:44 Lopressor 5 mg I.V. was administered by Manolo Levy RN; Per physician; 9:00:53 Procedure ended.(Physican Out) 9:01:56 Post-procedure physical assessment completed. ASA score P 2 - A patient with mild systemic disease as per Indio Fleming MD. 9:02:00 Post procedure rhythm: paced 9:02:03 Post procedure instruction explained to patient.Patient verbalizes understanding. 9:02:03 Patient needs reinforcement of post procedure teaching. 9:03:08 Procedure and supply charges have been captured, reviewed, submitted and are correct. 9:03:26 Procedure Complication : No complications 9:03:31 Vital chart was stopped 9:03:32 See physician's report for complete and final results. 9:03:33 Report given to Pre/Post Procedure Room. 9:03:36 Patient transfered to Pre/Post Procedure Room with Bed. 9:03:41 End room use (Document Last) Device Usage Item Manufacture Quantity Catalog Hospital Part Current Minimal Lot# / Name Number Charge Number Stock Stock Pearl pineda# Code Quantum Voyage 1 [id number] Combo Signature Audit [place] Stage Time Signature Unsigned Intra-Procedure 08/22/2017 Mary Rayn 9:06:41 AM RT(R) Signatures Monitor : Rene Santos RT Signature : Date : Time : Monitor : Mary Ryan Signature : RT Date : Time : [address] [place] [address]
[2017-08-22 08:00] LABS: BASOPHILS 0.3 % (0-2); EOSINOPHILS 2.2 % (0-7); HEMATOCRIT 33.4 % (42.0-54.0); HEMOGLOBIN 10.8 g/dL (13.5-17.5); LYMPHOCYTES 24.9 % (15-50); MCH 28.4 pg (26.0-34.0); MCHC 32.3 g/dL (31.0-37.0); MCV 87.9 fL (80.0-100.0); MEAN PLATELET VOLUME 8.1 fL (7.4-10.4); MONOCYTES 7.3 % (2-11); NEUTROPHILS 65.3 % (40-80); PLATELET COUNT 296 10x3/uL (130-400); RDW 13.7 % (11.5-14.5); WBC 6.4 10x3/uL (4.8-10.8)
[2017-08-22 08:05] LABS: CALC OSMOLALITY 277 mosm/kg (275-300); CALCIUM 9.2 mg/dL (8.5-10.1); CARBON DIOXIDE 25.3 mmol/L (21.0-32.0); CHLORIDE - SERUM 105 mmol/L (98-107); GLUCOSE 104 mg/dL (74-106); POTASSIUM - SERUM 3.9 mmol/L (3.5-5.1); SODIUM 140 mmol/L (136-145); UREA NITROGEN 11 mg/dL (7-18); eGFR NON AFRICAN AMERICAN 81 mL/min (90-120)
[2017-08-22 08:11] LABS: INR 4.21 (0.85-1.17); PROTIME 39.7 SECONDS (11.6-15.0)
== END 2017-08-22 11:51 | disposition home or self-care (01) ==
LOC: D.CATH 06:42
PROVIDERS: Internal Medicine Cardiovascular Disease
DX: I48.92 Unspecified atrial flutter (principal); Z01.812 Encounter for preprocedural laboratory examination

== ENCOUNTER → 2017-08-23 09:28 | Outpatient (CLI) | payer OTHER ==
[2017-07-26 10:15] VITALS: BMI 26.2
[2017-08-23 10:04] LABS: HEMATOCRIT 28.6 % (42.0-54.0); HEMOGLOBIN 9.2 g/dL (13.5-17.5); MCH 28.4 pg (26.0-34.0); MCHC 32.2 g/dL (31.0-37.0); MCV 88.3 fL (80.0-100.0); MEAN PLATELET VOLUME 7.7 fL (7.4-10.4); RBC 3.24 10x6/uL (4.20-6.10); RDW 13.7 % (11.5-14.5); WBC 5.3 10x3/uL (4.8-10.8)
[2017-08-23 10:18] LABS: INR 4.78 (0.85-1.17); PROTIME 43.9 SECONDS (11.6-15.0)
[2017-08-23 10:31] LABS: ALBUMIN 3.5 g/dL (3.4-5.0); ALKALINE PHOSPHATASE 104 U/L (46-116); ALT (SGPT) 24 U/L (10-68); BILIRUBIN - TOTAL 0.52 mg/dL (0.2-1.3); CALC OSMOLALITY 281 mosm/kg (275-300); CALCIUM 8.8 mg/dL (8.5-10.1); CARBON DIOXIDE 25.3 mmol/L (21.0-32.0); CHLORIDE - SERUM 108 mmol/L (98-107); CREATININE - SERUM 0.8 mg/dL (0.6-1.3); GLUCOSE 97 mg/dL (74-106); POTASSIUM - SERUM 3.9 mmol/L (3.5-5.1); PROTEIN - SERUM 6.7 g/dL (6.4-8.2); SODIUM 142 mmol/L (136-145); UREA NITROGEN 9 mg/dL (7-18); eGFR NON AFRICAN AMERICAN > 90 mL/min (90-120)
== END | disposition home or self-care (01) ==
LOC: D.LAB 08:00 → D.RAD 08:15 → D.LAB 09:28
PROVIDERS: Internal Medicine Cardiovascular Disease
DX: J91.8 Pleural effusion in other conditions classified elsewhere (principal); D64.9 Anemia, unspecified

== ENCOUNTER → 2017-09-03 15:38 | Outpatient (CLI) | payer OTHER ==
[2017-07-26 10:15] VITALS: BMI 26.2
[2017-09-03 16:10] LABS: INR 3.26 (0.85-1.17); PROTIME 32.5 SECONDS (11.6-15.0)
== END | disposition home or self-care (01) ==
LOC: D.LAB 15:38
PROVIDERS: Internal Medicine Cardiovascular Disease
DX: Z95.2 Presence of prosthetic heart valve (principal); Z51.81 Encounter for therapeutic drug level monitoring; Z79.01 Long term (current) use of anticoagulants

== ENCOUNTER → 2017-09-10 15:32 | Outpatient (CLI) | payer OTHER ==
[2017-07-26 10:15] VITALS: BMI 26.2
[2017-09-10 16:39] LABS: INR 6.55 (0.85-1.17); PROTIME 56.2 SECONDS (11.6-15.0)
== END | disposition home or self-care (01) ==
LOC: D.LAB 15:32
PROVIDERS: Internal Medicine Cardiovascular Disease
DX: Z95.2 Presence of prosthetic heart valve (principal); Z51.81 Encounter for therapeutic drug level monitoring; Z79.01 Long term (current) use of anticoagulants

== ENCOUNTER → 2017-09-19 10:26 | Outpatient (CLI) | payer OTHER ==
[2017-07-26 10:15] VITALS: BMI 26.2
[2017-09-19 11:14] LABS: INR 3.46 (0.85-1.17)
== END | disposition home or self-care (01) ==
LOC: D.LAB 10:26
PROVIDERS: Internal Medicine Cardiovascular Disease
DX: Z95.2 Presence of prosthetic heart valve (principal); Z51.81 Encounter for therapeutic drug level monitoring; Z79.01 Long term (current) use of anticoagulants

== ENCOUNTER → 2018-10-07 08:15 | Outpatient (CLI) | payer MEDICAID ==
[2017-07-26 10:15] VITALS: BMI 26.2
--- NOTE | 2018-10-09 14:51 | EC ---
PATIENT:ALFONSO EDWARD DATE OF SERVICE: 10/07/18 SEX: M MEDICAL RECORD: [id number] DATE OF : 57 LOCATION:[facility] AGE OF PATIENT: 63 ADMISSION DATE: 10/07/18 REFERRING PHYSICIAN: INTERPRETING PHYSICIAN: AURA LEPE MD ECHOCARDIOGRAM REPORT ECHO CHARGES 4 ECHO COMPLETE Date: 10/07/18 CLINICAL DIAGNOSIS: AVR HX OF PACER , [facility] AVR ECHOCARDIOGRAPHIC MEASUREMENTS (adult normal given) AC root (d.<3.7cm) 3.6 cm LV Septum d (<1.2 cm> 1.5 cm Valve Excursion 1.3 cm LV Septum (systole) 1.8 cm Left Atria (s.<4.0cm> 4.3 cm LVPW d(<1.2cm) 1.6 cm RV (d.<2.3cm) 4.0 cm LVPW (sytole) 2.0 cm LV diastole(<5.6CM) 4.8 cm MV E-F(>70mm/sec) cm LV systole 2.8 cm LVOT Diameter 1.5 cm MV exc.(>10mm) 1.5 cm Est.ejection fraction (50-75%) % DOPPLER: LVIT cm/sec A cm/sec E 74.0 cm/sec LA cm/sec RVSP 23 mmHg LVOT 127 cm/sec AOP1/2T m/s Asc. Ao 226 cm/sec RVOT 76 cm/sec RA cm/sec PA 111 cm/sec AV Gradient Peak 20.50mmHg AV Mean 10.77mmHg AV Area 1.0 cm MV Gradient Peak 3.37 mmHg MV Mean 1.51 mmHg MV Area cm COMMENTS: Boat Driver: 2 RISA FREEMAN Diamond Merchant: 3 Dr. Lozada TAPE# PACS Pericardial Effusion N DATE OF SERVICE: Adequate 2D, color flow, spectral Doppler, and M-Mode. LVH is present. LV internal dimension is normal. Wall motion is normal. EF is greater than or equal to 55%. Mechanical aortic valve prosthesis is noted with acceptable Doppler velocity, no more than mild AI on color flow imaging. Left atrium mildly dilated at 4.3 cm. Mitral valve shows no prolapse. Trace MR. Right-sided chambers grossly normal. Mild TR. TRANSINT:[id number] Voice Confirmation ID: [id number] DOCUMENT ID: [id number] ECHOCARDIOGRAM REPORT [id number] ALFONSO EDWARD GREGORY A MD at 1451 CC: [id number] DICTATION DATE: 10/08/18 1417 STRAWHAT SIZER: 10/08/18 1559 DEP CLI 10/07/18 [place] [id number] [place] [id number]
== END | disposition home or self-care (01) ==
LOC: D.HCCARDIO 08:15
PROVIDERS: ATTEND Internal Medicine Interventional Cardiology
DX: I47.1 Supraventricular tachycardia (principal)

== ENCOUNTER → 2018-11-26 12:09 | Outpatient (CLI) | payer MEDICAID ==
[2017-07-26 10:15] VITALS: BMI 26.2
== END | disposition home or self-care (01) ==
LOC: D.RT 08-30 10:00
PROVIDERS: ATTEND Internal Medicine Pulmonary Disease
DX: J45.909 Unspecified asthma, uncomplicated (principal)

== ENCOUNTER → 2020-01-09 09:09 | Outpatient (CLI) | payer MEDICARE ==
[2017-07-26 10:15] VITALS: BMI 26.2
== END | disposition home or self-care (01) ==
LOC: D.LAB 09:09
PROVIDERS: ATTEND Internal Medicine Pulmonary Disease
DX: Z11.59 Encounter for screening for other viral diseases (principal)

== ENCOUNTER → 2020-01-13 13:30 | Outpatient (CLI) | payer MEDICARE ==
[2017-07-26 10:15] VITALS: BMI 26.2
== END | disposition home or self-care (01) ==
LOC: D.RT 13:30
PROVIDERS: ATTEND Internal Medicine Pulmonary Disease
DX: J44.9 Chronic obstructive pulmonary disease, unspecified (principal); J20.9 Acute bronchitis, unspecified; Z11.59 Encounter for screening for other viral diseases

== ENCOUNTER 2020-04-13 15:07 | Inpatient (IN) | payer MEDICARE ==
[~2020-04-13] VITALS: Ht 152.4 cm; Wt 66.7 kg
[2020-04-13] MEDS ORDERED: JANTOVEN2 MG PO (15:44)
[2020-04-13 15:48] VITALS: BP 120/83; BMI 28.7
[2020-04-13 16:28] LABS: BASOPHILS 0.2 % (0-2); EOSINOPHILS 0.3 % (0-7); HEMATOCRIT 38.3 % (42.0-54.0); HEMOGLOBIN 13.8 g/dL (13.5-17.5); IMMATURE GRANULOCYTES 0.3 % (0-5); LYMPHOCYTES 7.1 % (15-50); MCH 31.8 pg (26.0-34.0); MCV 88.2 fL (80.0-100.0); MEAN PLATELET VOLUME 8.4 fL (7.4-10.4); NEUTROPHILS 81.1 % (40-80); PLATELET COUNT 192 10x3/uL (130-400); RBC 4.34 10x6/uL (4.20-6.10); RDW 11.9 % (11.5-14.5); WBC 13.3 10x3/uL (4.8-10.8)
--- NOTE | 2020-04-13 16:44 | NUR ---
PATIENT ADMITTED TO ROOM 2204. IV SITED TO [facility] WITH ONE ATTEMPT WITH 20 GAUGE. DENIES NEEDS. BED LOW. CALL STACY AND PERSONAL ITEMS IN REACH. PER ADENIKE SAMUELS, WOUND WILL BE CULTURED DURING SURGERY.
[2020-04-13 16:47] LABS: INR 1.33 (0.85-1.17); PROTIME 16.4 SECONDS (11.6-15.0)
[2020-04-13 16:54] LABS: ALBUMIN 3.2 g/dL (3.4-5.0); ALKALINE PHOSPHATASE 115 U/L (30-120); ALT (SGPT) 80 U/L (10-68); BILIRUBIN - TOTAL 1.55 mg/dL (0.2-1.3); CALC OSMOLALITY 253 mosm/kg (275-300); CALCIUM 8.8 mg/dL (8.5-10.1); CARBON DIOXIDE 26.6 mmol/L (21.0-32.0); CHLORIDE - SERUM 91 mmol/L (98-107); CREATININE - SERUM 0.8 mg/dL (0.6-1.3); GLUCOSE 113 mg/dL (74-106); POTASSIUM - SERUM 5.1 mmol/L (3.5-5.1); PROTEIN - SERUM 7.9 g/dL (6.4-8.2); SODIUM 124 mmol/L (136-145); UREA NITROGEN 20 mg/dL (7-18); eGFR NON AFRICAN AMERICAN > 90 mL/min (90-120)
[2020-04-13 17:34] VITALS: BP 120/83
--- NOTE | 2020-04-13 19:51 | NUR ---
ALERT AND ORENTED ABLE TO VOICE NEEDS AND WANTS TO STAFF. SITTING UP IN BED WITH NO NEEDS OR S/S OF DISTRESS. IV TO LEFT FOREARM WITH NS PER ORDERS, ON ROOM AIR. CALL LIGHT AND WATER IN REACH.
[2020-04-13 21:26] VITALS: BP 90/63
[2020-04-14] VITALS: BP 99/71
[2020-04-14 04:00] VITALS: BP 92/59
[2020-04-14 04:47] LABS: BASOPHILS 0.1 % (0-2); EOSINOPHILS 0.6 % (0-7); HEMATOCRIT 34.4 % (42.0-54.0); HEMOGLOBIN 12.1 g/dL (13.5-17.5); IMMATURE GRANULOCYTES 0.3 % (0-5); LYMPHOCYTES 10.9 % (15-50); MCH 31.1 pg (26.0-34.0); MCHC 35.2 g/dL (31.0-37.0); MCV 88.4 fL (80.0-100.0); MEAN PLATELET VOLUME 8.4 fL (7.4-10.4); MONOCYTES 9.8 % (2-11); NEUTROPHILS 78.3 % (40-80); PLATELET COUNT 218 10x3/uL (130-400); RBC 3.89 10x6/uL (4.20-6.10); RDW 12.1 % (11.5-14.5); WBC 11.3 10x3/uL (4.8-10.8)
[2020-04-14 04:54] LABS: INR 1.41 (0.85-1.17); PROTIME 17.1 SECONDS (11.6-15.0)
[2020-04-14 05:12] LABS: ALBUMIN 2.6 g/dL (3.4-5.0); ALKALINE PHOSPHATASE 97 U/L (30-120); ALT (SGPT) 69 U/L (10-68); BILIRUBIN - TOTAL 0.89 mg/dL (0.2-1.3); CALC OSMOLALITY 259 mosm/kg (275-300); CALCIUM 8.2 mg/dL (8.5-10.1); CARBON DIOXIDE 25.3 mmol/L (21.0-32.0); CHLORIDE - SERUM 94 mmol/L (98-107); CREATININE - SERUM 0.9 mg/dL (0.6-1.3); GLUCOSE 130 mg/dL (74-106); PROTEIN - SERUM 6.6 g/dL (6.4-8.2); SODIUM 127 mmol/L (136-145); UREA NITROGEN 20 mg/dL (7-18); eGFR NON AFRICAN AMERICAN 90 mL/min (90-120)
[2020-04-14 05:20] LABS: POTASSIUM - SERUM 3.6 mmol/L (3.5-5.1)
--- NOTE | 2020-04-14 07:48 | NUR ---
ALERT AND ORIENTED. LUNGS CLEAR BILATERALLY. HEART SOUNDS S1 AND S2 HEARD IN ALL [place]. BOWEL SOUNDS ACTIVE X 4. IV TO LFA PATENT WITHOUT REDNESS. DENIES NEEDS. BED LOW. CALL STACY AND PERSONAL ITEMS IN REACH. WILL CONTINUE TO MONITOR.
[2020-04-14 08:53] VITALS: BP 112/68
--- NOTE | 2020-04-14 09:52 | NUR ---
RESTING IN BED. DENIES NEEDS. WILL CONTINUE TO MONITOR.
[2020-04-14 10:50] VITALS: Ht 152.4 cm; Wt 66.7 kg
[2020-04-14 12:01] VITALS: BP 105/68
--- NOTE | 2020-04-14 14:12 | NUR ---
RESTING IN BED. DENIES NEEDS. WILL CONTINUE TO MONITOR.
--- NOTE | 2020-04-14 16:20 | NUR ---
CONSENTS OBTAINED FOR PROCEDURE. DENIES FURTHER QUESTIONS.
[2020-04-14 16:23] VITALS: BP 118/69
--- NOTE | 2020-04-14 19:50 | NUR ---
alert and orented able to voice needs to staff. c/o pain from dressing change orn norco given. resting in bed. remains on room air, iv to left forearm.no redness or pain at site at this time.
[2020-04-14 20:00] VITALS: BP 110/74
[2020-04-15] VITALS (11 sets, daily range): BP systolic 101–141; BP diastolic 58–81
[2020-04-15 04:35] LABS: BASOPHILS 0.1 % (0-2); EOSINOPHILS 0.8 % (0-7); HEMATOCRIT 34.3 % (42.0-54.0); HEMOGLOBIN 11.9 g/dL (13.5-17.5); IMMATURE GRANULOCYTES 0.3 % (0-5); LYMPHOCYTES 15.1 % (15-50); MCH 30.6 pg (26.0-34.0); MCHC 34.7 g/dL (31.0-37.0); MCV 88.2 fL (80.0-100.0); MEAN PLATELET VOLUME 8.2 fL (7.4-10.4); MONOCYTES 12.1 % (2-11); NEUTROPHILS 71.6 % (40-80); PLATELET COUNT 233 10x3/uL (130-400); RBC 3.89 10x6/uL (4.20-6.10); RDW 12.1 % (11.5-14.5)
[2020-04-15 04:45] LABS: INR 1.31 (0.85-1.17); PROTIME 16.2 SECONDS (11.6-15.0)
[2020-04-15 04:56] LABS: ALBUMIN 2.5 g/dL (3.4-5.0); ALKALINE PHOSPHATASE 92 U/L (30-120); BILIRUBIN - TOTAL 0.47 mg/dL (0.2-1.3); CALCIUM 8.2 mg/dL (8.5-10.1); CARBON DIOXIDE 27.1 mmol/L (21.0-32.0); CHLORIDE - SERUM 101 mmol/L (98-107); CREATININE - SERUM 0.8 mg/dL (0.6-1.3); GLUCOSE 117 mg/dL (74-106); POTASSIUM - SERUM 3.7 mmol/L (3.5-5.1); PROTEIN - SERUM 6.4 g/dL (6.4-8.2); SODIUM 133 mmol/L (136-145); eGFR NON AFRICAN AMERICAN > 90 mL/min (90-120)
[2020-04-15 04:57] LABS: ALT (SGPT) 51 U/L (10-68); CALC OSMOLALITY 265 mosm/kg (275-300); UREA NITROGEN 9 mg/dL (7-18)
--- NOTE | 2020-04-15 07:30 | NUR ---
PT IS RESTING IN BED WITH EYES OPEN. RESPIRATIONS ARE EVEN AND UNLABORED. PT IS AAO X 4. PT DENIES PRESENCE OF PAIN/N/V/DYSPNEA AT THIS TIME. DRESSING TO RIGHT BUTTOCK IS CDI. PIV TO LEFT FA INFUSING PER ORDER AND WITHOUT COMPROMISE. INCENTIVE SPIROMETER WITHIN REACH AND ENCOURAGED. HIBICLENSE COMPLETE. CONSENTS SIGNED AND ON CHART. EKG ON CHART. BED IS IN THE LOWEST POSITION. CALL LIGHT AND BEDSIDE TABLE ARE WITHIN REACH. SIDE RAILS X 2. PT DENIES FURTHER NEEDS. WILL CONT TO MONITOR.
--- NOTE | 2020-04-15 12:47 | NUR ---
SURGERY STAFF CALLS FLOOR AND REQUESTS PREOPMEDICATIONS TO BE ADMINISTERED. PRE OP MEDS ADMINISTERED PER ORDER. SEE EMAR.
--- NOTE | 2020-04-15 13:50 | NUR ---
PT TRANSPORTED OFF FLOOR FOR PROCEDURE.
--- NOTE | 2020-04-15 16:03 | NUR ---
PT ARRIVES TO ROOM VIA BED ESCORTED BY RECOVERY ROOM NURSE. PT IS AAO X 4 AND RESPIRATIONS ARE EVEN AND UNLABORED. DRESSING TO RIGHT BUTTOCK IS CDI. PT REPORTS "A LITTLE BURNING" TO INCISION. O2 VIA NC @2L. VSS SEE FLOWSHEET. INCENTIVE SPIROMETER WITHIN REACH. BED IS IN THE LOWEST POSITION. CALL LIGHT AND BEDSIDE TABLE ARE WITHIN REACH. SIDE RAILS X 2. PT DENIES FURTHER NEEDS. WILL CONT TO MONITOR.
--- NOTE | 2020-04-15 18:40 | NUR ---
NO OUTPUT THIS SHIFT TO LLQ DRAIN.
[2020-04-15 23:36] LABS: BILIRUBIN NEGATIVE (NEGATIVE); KETONE NEGATIVE (NEGATIVE); NITRITE NEGATIVE (NEGATIVE); UROBILINOGEN NORMAL mg/dL (< 2)
[2020-04-15 23:37] LABS: BACTERIA NONE SEEN HPF (NONE SEEN); EPITHELIAL CELLS NSEEN /hpf (0-5); WHITE CELLS - URINE 0-5 HPF (0-1)
[2020-04-16 04:00] VITALS: BP 100/66
[2020-04-16 05:47] LABS: BASOPHILS 0.1 % (0-2); EOSINOPHILS 0.8 % (0-7); HEMATOCRIT 35.5 % (42.0-54.0); HEMOGLOBIN 12.3 g/dL (13.5-17.5); IMMATURE GRANULOCYTES 0.4 % (0-5); LYMPHOCYTES 17.1 % (15-50); MCH 30.7 pg (26.0-34.0); MCHC 34.6 g/dL (31.0-37.0); MCV 88.5 fL (80.0-100.0); MEAN PLATELET VOLUME 8.1 fL (7.4-10.4); MONOCYTES 11.1 % (2-11); NEUTROPHILS 70.5 % (40-80); PLATELET COUNT 269 10x3/uL (130-400); RBC 4.01 10x6/uL (4.20-6.10); WBC 9.2 10x3/uL (4.8-10.8)
[2020-04-16 05:53] LABS: INR 1.28 (0.85-1.17); PROTIME 15.9 SECONDS (11.6-15.0)
[2020-04-16 05:54] LABS: ALBUMIN 2.5 g/dL (3.4-5.0); ALKALINE PHOSPHATASE 78 U/L (30-120); ALT (SGPT) 39 U/L (10-68); BILIRUBIN - TOTAL 0.36 mg/dL (0.2-1.3); CALC OSMOLALITY 265 mosm/kg (275-300); CALCIUM 8.1 mg/dL (8.5-10.1); CARBON DIOXIDE 28.3 mmol/L (21.0-32.0); CHLORIDE - SERUM 103 mmol/L (98-107); CREATININE - SERUM 0.7 mg/dL (0.6-1.3); GLUCOSE 97 mg/dL (74-106); POTASSIUM - SERUM 3.5 mmol/L (3.5-5.1); PROTEIN - SERUM 6.2 g/dL (6.4-8.2); SODIUM 134 mmol/L (136-145); UREA NITROGEN 7 mg/dL (7-18); eGFR NON AFRICAN AMERICAN > 90 mL/min (90-120)
--- NOTE | 2020-04-16 07:34 | NUR ---
PATIENT IN BED, AROUSES TO VOICE. DENIES PAIN OR NEEDS AT THIS TIME. BED LOW POSITION, CALL LIGHT IN REACH. WILL CONTINUE TO MONITOR.
--- NOTE | 2020-04-16 08:33 | NUR ---
PATIENT CARDIOVASCULAR LAB DIRECTOR LIGHT THINKING HE HAD A BOWEL MOVEMENT. RIGHT BUTTOCK DRESSING SOILED. ORIGINAL PACKING IN PLACE. TOP OF DRESSING CHANGED AND REINFORCED WITH 4X4'S AND TAPE.
[2020-04-16 09:29] VITALS: BP 141/82
[2020-04-16] MEDS ORDERED: CLINDAMYCIN HC300 MG PO (10:45)
[2020-04-16] MEDS ORDERED: ULTRAM50 MG PO (10:46)
--- NOTE | 2020-04-16 11:27 | MORECARE ---
CASE MANAGEMENT DISCHARGE SUMMARY PATIENT: ALFONSO EDWARD UNIT: [id number] ADM DATE: 04/13/20 AGE: 65 : 57 SEX: M ROOM/BED: D.2204 AUTHOR: CAMRON COWAN PHYSICIAN: REFERRING PHYSICIAN: JARROD MENDOZA MD DATE OF SERVICE: 04/16/20 Discharge Plan Patient Name: ALFONSO EDWARD Facility: [facility]:[place] : 1955 Planned Disposition: Home with Home Health Anticipated Discharge Date: Discharge Date: Expected LOS: Initial Reviewer: [email or web address] Initial Review Date: 04/13/2020 Generated: 04/16/20 12:26 pm Comments DCP- Discharge Planning Updated by [email or web address]: Marina Diaz on 04/16/20 10:[address] Patient Name: ALFONSO EDWARD Admission Status: Elective Accout number: [id number] Admission Date: 04-13-2020 : 1955 Admission Diagnosis:RECTAL ABSCESS Attending: STACI Current LOS: 3 Anticipated DC Date: Planned Disposition: Home with Home Health Primary Insurance: [employer] MEDICARE PPO or HMO Discharge Planning Comments: CM met with patient to complete initial dc planning assessment. CM educated patient on the CM role and verbal consent given by patient to complete assessment. Patient lives at home with his where he is independent with his care. At discharge patient plans to return home and feels this is a safe discharge. His will be his form setter/driver home. CM discussed availability of home health, rehab services, and medical equipment. He will need home health for wound care. He did not care who he used as ling as they take his insurance. [facility] is in network so I have sent the referral to them. LALA signed.Patient denied known discharge needs at this time. CM will continue to follow and will assist as needed with dc plans/needs. Chief Compliance Officer: Marina Diaz DCPIA - Discharge Planning Initial Assessment Updated by [email or web address]: Marina Diaz on 04/16/20 11:22 am * Is the patient Alert and Oriented? Yes * How many steps to enter\exit or inside your home? * PCP AGNES/BRIANDA JEONG * Pharmacy [facility] * Preadmission Environment Home with Family * ADLs Independent * Equipment Nebulizer * List name and contact numbers for known caregivers / representatives who currently or will assist patient after discharge: MANINDER EDWARD [phone] * Verbal permission to speak to the caregivers and representatives has been obtained from the patient. N/A * Community resources currently utilized None * Additional services required to return to the preadmission environment? Yes * Can the patient safely return to the preadmission environment? Yes * Has this patient been hospitalized within the prior 30 days at any hospital? No External Providers External Provider: [facility] Next Contact Date: Service Request Date: Service Type: Resolution: Reviewer: Comments: Coverage Notice Reviewer: [email or web address] Endy Diaz Notice Issued Date-Time: 04/16/2020 10:30 Notice Type: Patient Choice Letter Notice Delivered To: Patient Relationship to Patient: Nursing Educator Name: Delivery Method: HAND - Hand Delivered Lorna Days: Prior Verbal Notification: Recipient Understood Notice: Yes Recipient Signature: Yes Med Rec Note Co-signed by Attending: Coverage Notice Comment: lala with home health Patient Name: ALFONSO EDWARD Page 31213 at 1127 All edits/amendments must be made on the electronic document DICTATION DATE: 04/16/201125 VOCATIONAL NURSE: GRACY 04/16/201125 RPT#: [id number] DC DATE: STATUS: ADM IN [facility] [address] [place] [address] END OF REPORT
[2020-04-16 13:03] VITALS: BP 134/79
--- NOTE | 2020-04-16 14:24 | MORECARE ---
CASE MANAGEMENT DISCHARGE SUMMARY PATIENT: ALFONSO EDWARD UNIT: [id number] ADM DATE: 04/13/20 AGE: 65 : 57 SEX: M ROOM/BED: D.2204 AUTHOR: CAMRON COWAN PHYSICIAN: REFERRING PHYSICIAN: JARROD MENDOZA MD DATE OF SERVICE: 04/16/20 Discharge Plan Patient Name: ALFONSO EDWARD Facility: [facility]:[place] : 1955 Planned Disposition: Home with Home Health Anticipated Discharge Date: Discharge Date: Expected LOS: Initial Reviewer: [email or web address] Initial Review Date: 04/13/2020 Generated: 04/16/20 3:23 pm Comments DCP- Discharge Planning Updated by [email or web address]: Marina Diaz on 04/16/20 10:[address] Patient Name: ALFONSO EDWARD Admission Status: Elective Accout number: [id number] Admission Date: 04-13-2020 : 1955 Admission Diagnosis:RECTAL ABSCESS Attending: STACI Current LOS: 3 Anticipated DC Date: Planned Disposition: Home with Home Health Primary Insurance: [employer] MEDICARE PPO or HMO Discharge Planning Comments: CM met with patient to complete initial dc planning assessment. CM educated patient on the CM role and verbal consent given by patient to complete assessment. Patient lives at home with his where he is independent with his care. At discharge patient plans to return home and feels this is a safe discharge. His will be his feeder driver home. CM discussed availability of home health, rehab services, and medical equipment. He will need home health for wound care. He did not care who he used as ling as they take his insurance. [facility] is in network so I have sent the referral to them. LALA signed.Patient denied known discharge needs at this time. CM will continue to follow and will assist as needed with dc plans/needs. Architect Marine: Marina Diaz DCPIA - Discharge Planning Initial Assessment Updated by [email or web address]: Marina Diaz on 04/16/20 11:22 am * Is the patient Alert and Oriented? Yes * How many steps to enter\exit or inside your home? * PCP AGNES/K.STRANGE JIG WORKER * Pharmacy [facility] * Preadmission Environment Home with Family * ADLs Independent * Equipment Nebulizer * List name and contact numbers for known caregivers / representatives who currently or will assist patient after discharge: MANINDER EDWARD [phone] * Verbal permission to speak to the caregivers and representatives has been obtained from the patient. N/A * Community resources currently utilized None * Additional services required to return to the preadmission environment? Yes * Can the patient safely return to the preadmission environment? Yes * Has this patient been hospitalized within the prior 30 days at any hospital? No Coverage Notice Reviewer: [id number] Endy Diaz Notice Issued Date-Time: 04/16/2020 10:30 Notice Type: Patient Choice Letter Notice Delivered To: Patient Relationship to Patient: Electrical Installation Inspector Name: Delivery Method: HAND - Hand Delivered Lorna Days: Prior Verbal Notification: Recipient Understood Notice: Yes Recipient Signature: Yes Med Rec Note Co-signed by Attending: Coverage Notice Comment: lala with home health Last DP export: 04/16/20 10:27 a Patient Name: ALFONSO EDWARD Page [id number] at 1424 All edits/amendments must be made on the electronic document DICTATION DATE: 04/16/20 142 PRODUCT EXPERT: GRACY 04/16/20 142 RPT#: [id number] DC DATE: STATUS: ADM IN [facility] [address] [place] [address] END OF REPORT
[2020-04-16 16:34] VITALS: BP 108/65
--- NOTE | 2020-04-16 18:34 | OP ---
PATIENT NAME: ALFONSO EDWARD MEDICAL RECORD: [id number] :57 LOCATION:D[facility] ADMISSION DATE:04/13/20 SURGEON: SARATH JACKSON MD DATE OF OPERATION: 04/15/2020 PREOPERATIVE DIAGNOSIS: Right buttock abscess. POSTOPERATIVE DIAGNOSIS: Right buttock abscess without evidence of a pilonidal cyst and without evidence of an anal or rectal fistula. PROCEDURE: Excisional debridement of right buttock abscess with marsupialization and packing. The dimensions debrided were 2.5 x 3.0 cm included skin and subcutaneous tissue as well as a portion of the abscess cavity. SURGEON: Sarath Jackson MD PRODUCTION CONTROL COORDINATING CLERK: None. BLOOD LOSS: 50 cc. ANESTHESIA: General. COMPLICATIONS: None. The risks, possible complications and alternatives to the procedure were explained to the patient. He elects to proceed. The discussion specifically included, but was not limited to, bleeding requiring emergency reoperation, infection, large bowel injury. OPERATIVE COURSE: The patient was conveyed the operating room electively on 04/15/2020. General anesthesia was induced by the anesthesia staff. The patient was placed in the prone jackknife position. U-shaped anal retractor was placed within the anus and rectum. Through the site where the abscess had been draining, I inserted a syringe that had an Angiocath on it, and through the Angiocath I injected a combination of methylene blue and hydrogen peroxide. There was no evidence of spillage of hydrogen peroxide and methylene blue into the anus or rectum and therefore no evidence of a fistula from the abscess cavity to the large bowel. In the midline, cephalad to the abscess cavity, there was a dimple, but no definite pore, so I do not believe the patient has a pilonidal cyst. I sharply excised the skin and subcutaneous tissue in a roughly circular fashion around the site that was draining. The dimensions are listed above. I curetted out the abscess cavity, which was extensive. Cultures had been obtained earlier. I then marsupialized the wound with a running locking 3-0 Vicryl Rapide suture. I irrigated the abscess cavity with hydrogen peroxide. I then packed the abscess cavity with quarter strength Dakin's-soaked Kerlixs. A sterile dressing was applied. The patient was then extubated and conveyed to post-anesthesia care unit where he was in stable condition. No family members were present. My plan is to keep OPERATIVE REPORT [id number] ALFONSO EDWARD the patient in the hospital for 2-3 days on intravenous antibiotics and then I will remove the packing with plans not to repack the wound and the patient can be dismissed home. TRANSINT:[id number] Voice Confirmation ID: [id number] DOCUMENT ID: [id number] SARATH JACKSON MD at 1834 CC: JARROD MENDOZA MD [id number] DICTATION DATE: 04/15/20 1543 CURTAIN HEMMER AUTOMATIC: 04/15/20 2237 ADM IN [facility] [address] [id number]
[2020-04-16 20:01] VITALS: BP 96/62
--- NOTE | 2020-04-16 21:00 | NUR ---
LYING IN BED WITHOUT COMPLAINYS VOICED. RESP UNLABORED. DRESSING TO RIGHT BUTTOCKS CDI.IV TO LFA INTACT WITHOUT REDNESS OR EDEMA NOTED. CL IN REACH
[2020-04-17 07:02] LABS: BASOPHILS 0.1 % (0-2); EOSINOPHILS 1.3 % (0-7); HEMATOCRIT 35.1 % (42.0-54.0); HEMOGLOBIN 12.3 g/dL (13.5-17.5); IMMATURE GRANULOCYTES 0.6 % (0-5); LYMPHOCYTES 22.3 % (15-50); MCH 30.6 pg (26.0-34.0); MCV 87.3 fL (80.0-100.0); MEAN PLATELET VOLUME 8.1 fL (7.4-10.4); MONOCYTES 8.9 % (2-11); NEUTROPHILS 66.8 % (40-80); PLATELET COUNT 263 10x3/uL (130-400); RBC 4.02 10x6/uL (4.20-6.10)
[2020-04-17 07:08] LABS: WBC 6.7 10x3/uL (4.8-10.8)
[2020-04-17 07:21] LABS: INR 1.21 (0.85-1.17); PROTIME 15.2 SECONDS (11.6-15.0)
[2020-04-17 07:42] LABS: ALBUMIN 2.6 g/dL (3.4-5.0); ALKALINE PHOSPHATASE 81 U/L (30-120); BILIRUBIN - TOTAL 0.35 mg/dL (0.2-1.3); CALCIUM 8.3 mg/dL (8.5-10.1); CARBON DIOXIDE 24.5 mmol/L (21.0-32.0); CHLORIDE - SERUM 103 mmol/L (98-107); CREATININE - SERUM 0.7 mg/dL (0.6-1.3); GLUCOSE 115 mg/dL (74-106); POTASSIUM - SERUM 3.4 mmol/L (3.5-5.1); PROTEIN - SERUM 5.8 g/dL (6.4-8.2); SODIUM 136 mmol/L (136-145); eGFR NON AFRICAN AMERICAN > 90 mL/min (90-120)
[2020-04-17 07:46] LABS: ALT (SGPT) 50 U/L (10-68); CALC OSMOLALITY 269 mosm/kg (275-300); UREA NITROGEN 5 mg/dL (7-18)
[2020-04-17 09:21] VITALS: BP 122/77
[2020-04-17] MEDS ORDERED: LIPITOR10 MG PO (10:02)
[2020-04-17] MEDS ORDERED: COREG12.5 MG PO (10:02)
[2020-04-17] MEDS ORDERED: COZAAR50 MG PO (10:02)
--- NOTE | 2020-04-17 10:03 | NUR ---
PATIENT EATING BREAKFAST. DENIES PAIN OR NEEDS AT THIS TIME. BED LOW POSITION, CALL LIGHT IN REACH. FREE FROM SIGNS OF DISTRESS. WILL CONTINUE TO MONITOR.
[2020-04-17] MEDS ORDERED: LOVENOX60 MG/0.6 SC (10:06)
--- NOTE | 2020-04-17 11:55 | MORECARE ---
CASE MANAGEMENT DISCHARGE SUMMARY PATIENT: ALFONSO EDWARD UNIT: [id number] ADM DATE: 04/13/20 AGE: 65 : 57 SEX: M ROOM/BED: D.2204 AUTHOR: CHAPODOC PHYSICIAN: REFERRING PHYSICIAN: JARROD MENDOZA MD DATE OF SERVICE: 04/17/20 Discharge Plan Patient Name: ALFONSO EDWARD Facility: [facility]:[place] : 1955 Planned Disposition: Home with Home Health Anticipated Discharge Date: Discharge Date: Expected LOS: Initial Reviewer: [email or web address] Initial Review Date: 04/13/2020 Generated: 04/17/20 12:54 pm Comments DCP- Discharge Planning Updated by [email or web address]: Naomy Charles on 04/17/20 10:[address] CM received discharge order. I called Darling with [address] and informed her of discharge today. She states start of care will be tomorrow and she has patient's phone number and 's number to call [facility]. DC meds/order/summary faxed to [address] DCP- Discharge Planning Updated by [id number]: Marina Diaz on 04/16/20 10:[address] Patient Name: ALFONSO EDWARD Admission Status: Elective Accout number: [id number] Admission Date: 04-13-2020 : 1955 Admission Diagnosis:RECTAL ABSCESS Attending: STACI Current LOS: 3 Anticipated DC Date: Planned Disposition: Home with Home Health Primary Insurance: [employer] MEDICARE PPO or HMO Discharge Planning Comments: CM met with patient to complete initial dc planning assessment. CM educated patient on the CM role and verbal consent given by patient to complete assessment. Patient lives at home with his where he is independent with his care. At discharge patient plans to return home and feels this is a safe discharge. 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 CM discussed availability of home health, rehab services, and medical equipment. He will need home health for wound care. He did not care who he used as ling as they take his insurance. [facility] is in network so I have sent the referral to them. LALA signed.Patient denied known discharge needs at this time. CM will continue to follow and will assist as needed with dc plans/needs. Display Maker: Marina Diaz DCPIA - Discharge Planning Initial Assessment Updated by [id number]: Marina Diaz on 04/16/20 11:22 am * Is the patient Alert and Oriented? Yes * How many steps to enter\exit or inside your home? * PCP [facility]ANDA JE[facility] * Pharmacy [facility] * Preadmission Environment Home with Family * ADLs Independent * Equipment Nebulizer * List name and contact numbers for known caregivers / representatives who currently or will assist patient after discharge: MANINDER EDWARD [phone] * Verbal permission to speak to the caregivers and representatives has been obtained from the patient. N/A * Community resources currently utilized None * Additional services required to return to the preadmission environment? Yes * Can the patient safely return to the preadmission environment? Yes * Has this patient been hospitalized within the prior 30 days at any hospital? No Coverage Notice Reviewer: [id number] - Marina Diaz Notice Issued Date-Time: 04/16/2020 10:30 Notice Type: Patient Choice Letter Notice Delivered To: Patient Relationship to Patient: Molding Machine Operator Name: Delivery Method: HAND - Hand Delivered Lorna Days: Prior Verbal Notification: Recipient Understood Notice: Yes Recipient Signature: Yes Med Rec Note Co-signed by Attending: Coverage Notice Comment: lala with home health Reviewer: [id number] - Naomy Charles Notice Issued Date-Time: 04/17/2020 11:20 Notice Type: IM Discharge Notice Notice Delivered To: Patient Relationship to Patient: Self Molding Machine Operator Name: Delivery Method: HAND - Hand Delivered Lorna Days: Prior Verbal Notification: Recipient Understood Notice: Yes Recipient Signature: Yes Med Rec Note Co-signed by Attending: Coverage Notice Comment: IMM explained, signed, given, copy placed in MR Last DP export: 04/16/20 1:24 p Patient Name: ALFONSO EDWARD Page [id number] at 1155 All edits/amendments must be made on the electronic document DICTATION DATE: 04/17/20 1155 BUILDING ENGINEER: GRACY 04/17/20 1155 RPT#: [id number] DC DATE: STATUS: ADM IN [facility] [address] [place] [address] END OF REPORT
--- NOTE | 2020-04-17 14:22 | NUR ---
PATIENT COMPUTER NETWORK ENGINEER LIGHT. STATES HE POOPED IN THE BED. BED LINENS CHANGED. DRESSING TO RIGHT BUTTOCK CHANGED. TOLLERATED WELL.
[2020-04-17 14:25] VITALS: BP 131/73
--- NOTE | 2020-04-17 14:57 | NUR ---
DISCHARGE TEACHING COMPLETE. NO FURTHER QUESTIONS. IV CATH REMOVED FROM LEFT ARM. CATH TIP INTACT. PATIENT GETTING DRESSED AND GATHERING BELONGINGS WAITING ON A WHEELCHAIR.
--- NOTE | 2020-04-17 15:13 | NUR ---
PATIENT LEFT UNIT VIA WHEELCHAIR TO HOME.
--- NOTE | 2020-04-19 09:03 | MORECARE ---
CASE MANAGEMENT DISCHARGE SUMMARY PATIENT: ALFONSO EDWARD UNIT: [id number] ADM DATE: 04/13/20 AGE: 65 : 57 SEX: M ROOM/BED: D.2204 AUTHOR: CHAPO,DOC PHYSICIAN: REFERRING PHYSICIAN: JARROD MENDOZA MD DATE OF SERVICE: 04/19/20 Discharge Plan Patient Name: ALFONSO EDWARD Facility: [facility]:[place] : 1955 Planned Disposition: Home with Home Health Anticipated Discharge Date: Discharge Date: 04/17/2020 Expected LOS: Initial Reviewer: [email or web address] Initial Review Date: 04/13/2020 Generated: 04/19/20 10:02 am Comments DCP- Discharge Planning Updated by [id number]: Naomy Charles on 04/17/20 10:[address] CM received discharge order. I called Darling with [address] and informed her of discharge today. She states start of care will be tomorrow and she has patient's phone number and 's number to call [facility]. DC meds/order/summary faxed to [address] DCP- Discharge Planning Updated by [email or web address]: Marina Diaz on 04/16/20 10:[address] Patient Name: ALFONSO EDWARD Admission Status: Elective Accout number: [id number] Admission Date: 04-13-2020 : 1955 Admission Diagnosis:RECTAL ABSCESS Attending: STACI Current LOS: 3 Anticipated DC Date: Planned Disposition: Home with Home Health Primary Insurance: [employer] MEDICARE PPO or HMO Discharge Planning Comments: CM met with patient to complete initial dc planning assessment. CM educated patient on the CM role and verbal consent given by patient to complete assessment. Patient lives at home with his where he is independent with his care. At discharge patient plans to return home and feels this is a safe discharge. 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 CM discussed availability of home health, rehab services, and medical equipment. He will need home health for wound care. He did not care who he used as ling as they take his insurance. [facility] is in network so I have sent the referral to them. LALA signed.Patient denied known discharge needs at this time. CM will continue to follow and will assist as needed with dc plans/needs. Figure Clerk: Marina Diaz DCPIA - Discharge Planning Initial Assessment Updated by [id number]: Marina Diaz on 04/16/20 11:22 am * Is the patient Alert and Oriented? Yes * How many steps to enter\exit or inside your home? * PCP [facility] * Pharmacy [facility] * Preadmission Environment Home with Family * ADLs Independent * Equipment Nebulizer * List name and contact numbers for known caregivers / representatives who currently or will assist patient after discharge: MANINDER EDWARD [phone] * Verbal permission to speak to the caregivers and representatives has been obtained from the patient. N/A * Community resources currently utilized None * Additional services required to return to the preadmission environment? Yes * Can the patient safely return to the preadmission environment? Yes * Has this patient been hospitalized within the prior 30 days at any hospital? No Coverage Notice Reviewer: [id number] - Marina Diaz Notice Issued Date-Time: 04/16/2020 10:30 Notice Type: Patient Choice Letter Notice Delivered To: Patient Relationship to Patient: Swatcher Name: Delivery Method: HAND - Hand Delivered Lorna Days: Prior Verbal Notification: Recipient Understood Notice: Yes Recipient Signature: Yes Med Rec Note Co-signed by Attending: Coverage Notice Comment: lala with home health Reviewer: [id number] - Naomy Charles Notice Issued Date-Time: 04/17/2020 11:20 Notice Type: IM Discharge Notice Notice Delivered To: Patient Relationship to Patient: Self Swatcher Name: Delivery Method: HAND - Hand Delivered Lorna Days: Prior Verbal Notification: Recipient Understood Notice: Yes Recipient Signature: Yes Med Rec Note Co-signed by Attending: Coverage Notice Comment: IMM explained, signed, given, copy placed in MR Last DP export: 04/17/20 10:55 Patient Name: ALFONSO EDWARD Page [phone] at 0903 All edits/amendments must be made on the electronic document DICTATION DATE: 04/19/20901 INSTRUCTIONAL SUPPORT TECHNICIAN: GRACY 04/19/20901 RPT#: [id number] DC DATE:10/10/20 STATUS: DIS [facility] [address] [place] [address] END OF REPORT
[2020-04-20 17:08] LABS: AEROBE ID Preliminary report (()); RESULT 1 Gram negative rods (())
== END 2020-04-17 15:14 | disposition home health service (06) | DRG 854 ==
LOC: D.MS 15:07
PROVIDERS: Family Medicine; Surgery; ADMIT Family Medicine; ATTEND Family Medicine
PROC: 0JB90ZZ Excision of Buttock Subcutaneous Tissue and Fascia, Open Approach (ICD-10-PCS; principal; 2020-04-15 12:00)
DX: A41.9 Sepsis, unspecified organism (principal); K61.1 Rectal abscess; I25.10 Atherosclerotic heart disease of native coronary artery without angina pectoris; I10 Essential (primary) hypertension; Z95.0 Presence of cardiac pacemaker; Z95.2 Presence of prosthetic heart valve

== ENCOUNTER → 2020-04-22 20:15 | Outpatient (CLI) | payer MEDICARE ==
[2020-04-14 10:50] VITALS: BMI 28.7
[~2020-04-22 20:15] MED LIST changes: +CLINDAMYCIN HC300 MG PO; +COREG12.5 MG PO; +COZAAR50 MG PO; +JANTOVEN2 MG PO; +LIPITOR10 MG PO; +LOVENOX60 MG/0.6 SC; +ULTRAM50 MG PO
== END | disposition home or self-care (01) ==
LOC: D.LABREF 20:15
PROVIDERS: ATTEND Family Medicine
DX: Z79.01 Long term (current) use of anticoagulants (principal)

== ENCOUNTER → 2020-04-23 18:29 | Outpatient (CLI) | payer MEDICARE ==
[2020-04-14 10:50] VITALS: BMI 28.7
[2020-04-23 19:17] LABS: INR 1.27 (0.85-1.17); PROTIME 15.8 SECONDS (11.6-15.0)
== END | disposition home or self-care (01) ==
LOC: D.LABREF 18:29
PROVIDERS: ATTEND Family Medicine
DX: Z79.01 Long term (current) use of anticoagulants (principal)

== ENCOUNTER → 2020-11-10 09:10 | Outpatient (CLI) | payer MEDICARE ==
[2020-04-14 10:50] VITALS: BMI 28.7
--- NOTE | ~2020-11-10 | EC ---
PATIENT:ALFONSO EDWARD DATE OF SERVICE: 11/10/20 SEX: M MEDICAL RECORD: [id number] DATE OF : [birth year] LOCATION:D[facility] AGE OF PATIENT: 65 ADMISSION DATE: 11/10/20 REFERRING PHYSICIAN: INTERPRETING PHYSICIAN: AURA LEPE MD ECHOCARDIOGRAM REPORT ECHO CHARGES 4 ECHO COMPLETE Date: 11/10/20 CLINICAL DIAGNOSIS: HX OF HTN , AORITC VALVE REPLACEMENT,PACEMAKER ECHOCARDIOGRAPHIC MEASUREMENTS (adult normal given) AC root (d.<3.7cm) 3.6 cm LV Septum d (<1.2 cm> 1.2 cm Valve Excursion 1.6 cm LV Septum (systole) 1.3 cm Left Atria (s.<4.0cm> 3.7 cm LVPW d(<1.2cm) 1.2 cm RV (d.<2.3cm) 3.9 cm LVPW (sytole) 1.7 cm LV diastole(<5.6CM) 5.3 cm MV E-F(>70mm/sec) cm LV systole 3.4 cm LVOT Diameter 2.3 cm MV exc.(>10mm) 1.0 cm Est.ejection fraction (50-75%) % DOPPLER: LVIT cm/sec A 93.0 cm/sec E 114.0 cm/sec LA cm/sec RVSP 36 mmHg LVOT 93 cm/sec AOP1/2T m/s Asc. Ao 208 cm/sec RVOT 90 cm/sec RA cm/sec PA 117 cm/sec AV Gradient Peak 17.26mmHg AV Mean 8.91 mmHg AV Area 1.7 cm MV Gradient Peak 5.54 mmHg MV Mean 2.17 mmHg MV Area cm COMMENTS: Research Lab Assistant: 2 RISA FREEMAN Tin Cutter: 3 Dr. Lozada TAPE# PACS Pericardial Effusion N DATE OF SERVICE: Adequate 2D, color-flow imaging, spectral Doppler, and M-Mode Borderline LVH. LV internal dimensions are normal. Wall motion is normal. EF is greater than or equal to 55%. Mechanical prosthetic aortic valve is noted with acceptable Doppler velocity. No significant AI. Left atrium is normal at 3.7 cm. Mitral valve shows no prolapse. Mild MR. Right-sided chambers are grossly normal. Mild TR. Incidental note is made of the pacemaker lead in the RV apex. ECHOCARDIOGRAM REPORT [id number] ALFONSO EDWARD TRANSINT:[id number] Voice Confirmation ID: [id number] DOCUMENT ID: [id number] AURA LEPE MD CC: [id number] DICTATION DATE: 11/11/20 141 HEALTH SERVICES MANAGER: 11/11/20 1526 DEP CLI 11/10/20 [id number] [id number]
== END | disposition home or self-care (01) ==
LOC: D.HCCECHO 11-03 10:00
PROVIDERS: ATTEND Internal Medicine Interventional Cardiology
DX: J45.909 Unspecified asthma, uncomplicated (principal)